=== PATIENT | female | born 1935 | race Caucasian/White ===

== ENCOUNTER 2018-10-06 11:29 | Outpatient (CLI) | payer MEDICARE, BC ==
--- NOTE | 2018-10-06 12:55 | RAD ---
RADIOGRAPH CHEST 2 VIEWS: DATE: 10/06/2018. TIME: 11:41 a.m. HISTORY: An 83-year-old female status post defibrillator exchange. COMPARISON: One view study of 04/24/2015. FINDINGS: There is no air space density, pulmonary edema, pleural effusion, pneumothorax, or cardiomegaly. The re is a levoscoliosis of the thoracolumbar junction with associated high-grade degenerative disk smith ges, and a compensatory dextroscoliosis of the mid thoracic spine. The triple-lead left subclavian A ICD remains with lead tips at the right atrial appendage, right ventricle, and coronary sinus. No in terval change is detected compared to the prior image. IMPRESSION: 1. No acute cardiopulmonary findings. 2. Automatic implantable cardioverter-defibrillator. 3. S-shaped scoliosis. jn [] POS: [facility]
== END 2018-10-06 11:30 | disposition home or self-care (01) ==
LOC: RAD 11:29
PROVIDERS: ATTEND Internal Medicine Pulmonary Disease
DX: R06.00 Dyspnea, unspecified (principal); M41.9 Scoliosis, unspecified; Z95.810 Presence of automatic (implantable) cardiac defibrillator
CPT/HCPCS: 71046

== ENCOUNTER 2019-05-12 15:15 | Inpatient (IN) | payer MEDICARE, BC ==
[~2019-05-12 15:15] MED LIST: ISOVUE-370 76%-LOCM 1 ML ONE
[2019-05-12 16:35] LABS: #Basophils 0.1 thou/uL (0.0-0.2); #Eosinphils 0.1 thou/uL (0.0-0.7); #Lymphocytes 1.1 thou/uL (1.20-3.40); #Monocytes 0.4 thou/uL (0.11-0.59); #Neutrophils 7.6 thou/uL (1.40-6.50); %Basophils 0.8 % (0.0-1.0); %Eosinophils 1.3 % (0.0-10.0); %Lymphocytes 11.7 % (21.0-51.0); %Monocytes 4.6 % (0.0-10.0); %Neutrophils 81.7 % (42.0-75.0); Hemoglobin 12.8 g/dL (12.0-16.0); Mean Corpuscular HGB CONC 33.5 g/dL (32.0-36.0); Mean Corpuscular Hemoglobin 33.8 pg (27.0-31.0); Mean Platelet Volume 8.7 fL (7.4-10.4); Platelet Count 199 thou/uL (130-400); RBC Distribution Width 15.4 % (11.5-14.5); Red Blood Cell (RBC) Count 3.79 mill/uL (4.20-5.40); White Blood Cell (WBC) Count 9.3 thou/uL (4.8-10.8)
[2019-05-12 16:36] LABS: Bilirubin Negative (Negative); Blood, Urine Negative (Negative); Clarity Clear (Clear); Glucose, Urine (Dipstick) Normal (Negative); Leukocyte Negative Leu/uL (Negative); Nitrite Negative (Negative); Protein, Urine (Dipstick) 10 mg/dL (Neg-Trace); Urobilinogen Normal mg/dL (Less than 2)
[2019-05-12 17:04] LABS: ALT (SGPT) 22 U/L (8-55); AST (SGOT) 24 U/L (5-34); Albumin 4.5 g/dL (3.4-4.8); Alkaline Phosphatase 86 U/L (40-150); Anion Gap 12 mmol/L (10-20); BUN (Urea Nitrogen) 14 mg/dL (9.8-20.1); Calc. Creatinine Clearance 0 mL/min (70-130); Carbon Dioxide 27 mmol/L (23-31); Chloride 104 mmol/L (98-107); Estimated GFR-MDRD 70; Globulin 2.6 g/dL (2.4-3.5); Glucose 96 mg/dL (83-110); Potassium 3.7 mmol/L (3.5-5.1); Protein, Total 7.1 g/dL (6.0-8.3); Sodium 139 mmol/L (136-145)
[2019-05-12] MEDS ORDERED: Ketorolac Tromethamine 30 MG/ML VIAL ONE (18:04)
[2019-05-12] MEDS ORDERED: Ondansetron PF 4 MG/2 ML Vial ONE (18:04)
--- NOTE | 2019-05-12 19:24 | CT ---
CT OF ABDOMEN AND PELVIS PERFORMED WITH CONTRAST ENHANCEMENT: 05/12/19 HISTORY: Left lower quadrant pain. Patient is being treated on antibiotics for diverticulitis. The lung bases are clear. The liver shows some subtle areas of hypodensity which could represent tiny cysts. The inferior porti on of the spleen has a bulbous appearance. There is a subtle area of altered echogenicity which I bel ieve is actually related to a mass within the spleen, incompletely characterized. Most likely an enti ty such as a hemangioma. It measures almost 7 cm. Other splenic lesions are not excluded. There is no signs of infarct or bleed associated with this. The pancreas and gallbladder regions appear unremark able. Right and left adrenal glands are normal in appearance. Nonobstructing bilateral renal calculi are se en. There are inflammatory changes of the descending colon associated with diverticular changes. No a bscess is seen. No free air. CT OF PELVIS PERFORMED WITH CONTRAST ENHANCEMENT: Moderate sigmoid diverticulosis is noted. Chronic deformity to the left hip is present. No free fluid noted. IMPRESSION: 1. Findings compatible with diverticulitis of the descending colon. Change involves the mid to m ore distal descending colon. No abscess formation. 7 cm splenic mass, incompletely characterized, sta tistically most likely hemangioma. 2. Bilateral nonobstructing renal calculi. POS: [facility]
[2019-05-12] MEDS ORDERED: Clindamycin/D5W 600 mg/50 ml Premix Bag ONE (20:41)
[2019-05-12] MEDS ORDERED: cefTRIAXone\\ROCEPHIN 1 GM VIAL ONE (20:41)
[2019-05-12] MEDS ORDERED: Ketorolac Tromethamine 30 MG/ML VIAL IVP PRN (21:38)
[2019-05-12] MEDS ORDERED: Clindamycin/D5W 600 MG in Premix Bag 1 BAG IVPB SCH (22:00)
[2019-05-12] MEDS: Sodium Chloride 0.9% 1,000 ML IV SCH (22:26)
[2019-05-12 22:43] VITALS: BMI 25.9
[2019-05-13] MEDS ORDERED: Clindamycin/D5W 600 MG in Premix Bag 1 BAG IVPB SCH (06:00)
[2019-05-13] MEDS: Sodium Chloride 0.9% 1,000 ML IV SCH ×2 (06:06→18:35)
[2019-05-13 06:41] LABS: #Eosinphils 0.1 thou/uL (0.0-0.7); #Monocytes 0.3 thou/uL (0.11-0.59); %Basophils 0.4 % (0.0-1.0); %Eosinophils 3.3 % (0.0-10.0); %Monocytes 7.8 % (0.0-10.0); %Neutrophils 59.5 % (42.0-75.0); Hemoglobin 10.4 g/dL (12.0-16.0); Mean Corpuscular HGB CONC 33.2 g/dL (32.0-36.0); Mean Corpuscular Hemoglobin 33.9 pg (27.0-31.0); Mean Platelet Volume 8.4 fL (7.4-10.4); Platelet Count 152 thou/uL (130-400); RBC Distribution Width 15.4 % (11.5-14.5); Red Blood Cell (RBC) Count 3.07 mill/uL (4.20-5.40); White Blood Cell (WBC) Count 3.3 thou/uL (4.8-10.8)
[2019-05-13] MEDS ORDERED: Prevnar 13-Val Conj/PF 0.5 ML SYRINGE IM ONE (09:00)
[2019-05-13] MEDS ORDERED: Ondansetron ODT 4 MG TAB PO PRN (10:18)
[2019-05-13] MEDS ORDERED: Ketorolac Tromethamine 15 MG/ML VIAL IVP PRN (10:18)
[2019-05-13] MEDS ORDERED: Ondansetron PF 4 MG/2 ML Vial SLOW IVP PRN (10:19)
--- NOTE | 2019-05-13 11:51 | HP ---
CHIEF COMPLAINT: Abdominal pain. HISTORY OF PRESENT ILLNESS: This is an 84-year-old female, patient of Dr. Demario Jacob, whom he had been treating for diverticulitis for the previous two weeks with oral Cipro and Flagyl. The patient had been experiencing mucousy diarrhea as well as left lower quadrant pain. She denies any nausea or vomiting. She denies any melena or hematochezia, but she noted the pain was getting worse, and on the day of visit to the ER, the pain had gotten significantly worse, radiating to her back. Upon arrival to the ER, CT scan was done confirming the diverticulitis, but did not find a phlegmon and no evidence of rupture. So the plan was to put her in the hospital, change her to IV antibiotics. PAST MEDICAL HISTORY: She had a breast cancer, taken out by lumpectomy. She also has a history of hypertension, atrial fibrillation, and hyperlipidemia. She has had a hip issue since on her left side. SURGICAL HISTORY: She has had a left hip scope. She has had hysterectomy with bilateral oophorectomy. She has had cataract surgery bilaterally. She has a pacemaker defibrillator placed. She has had right knee replaced and she had right breast lumpectomy. 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 She is . Has children. Has no toxic habits. ALLERGIES: TO TYLENOL, CODEINE, HYDROCODONE, MORPHINE, NALOXONE, PROPOXYPHENE, AND TRAMADOL, ALL OF THEM CAUSE SEVERE NAUSEA. MEDICATIONS: 1. She is on Eliquis 2.5 mg twice a day. 2. She is on amlodipine 10 mg daily. 3. She is on carvedilol 6.25 mg b.i.d. 4. She is on lisinopril 20 mg daily. 5. She is on atorvastatin 40 mg daily. 6. She is on sotalol 80 mg daily. 7. She is on Advair inhaler Diskus p.r.n. 8. She is on anastrozole 1 mg daily at bedtime. 9. She is on torsemide 10 mg p.r.n. FAMILY HISTORY: Essentially noncontributory. REVIEW OF SYSTEMS: The patient denies any fevers. No headaches. No chills. No troubles with vision. No trouble chewing or swallowing. She denies any chest pain. She says she always has some chronic shortness of breath. She denies any emesis or hematemesis. No cough. No hemoptysis. Denies any dysuria or hematuria. GI symptoms as stated in HPI. Denies any paresis or paresthesias. 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 She denies any, as stated, no paresthesias or paresis. Denies any auditory or visual hallucinations. No suicidal or homicidal ideations. PHYSICAL EXAMINATION: VITAL SIGNS: She has been afebrile. Temperature 97.9, pulse is 70s to 80s, respiratory rate is 14 to 16, O2 saturation 94% to 98% on room air. She has also had 1 to 2 L of O2 as needed. BP is well controlled, 109/67. GENERAL: She is lying in bed, relatively comfortable. Awake, alert, conversive, and pleasant. HEENT: Normocephalic, atraumatic cranium. Mucosa is moist. There is no injection to the sclera or the bulbar or palpebral conjunctiva of both eyes. She does wear glasses. Pupils are equal, round, and reactive to light and accommodation. Extraocular movements are intact. Oral mucosa is moist. NECK: Supple. No JVD. No bruits. No thyromegaly. No lymphadenopathy. LUNGS: Clear to auscultation bilaterally with no rales, rhonchi, or wheezes. HEART: S1 and S2. No rubs, murmurs, or gallops. Her pacemaker site is nontender and no erythema. No drainage. ABDOMEN: Soft on the right side. There is negative Rovsing. Tender to palpation on the left side, upper and lower. There is no rebound. There is only voluntary guarding. No involuntary guarding. EXTREMITIES: Palpable pulses times all four extremities. GENITOURINARY: Deferred. MUSCULOSKELETAL: Good muscle tone and strength is equal and symmetrical. NEUROLOGIC: She is awake, alert, and oriented x4. Cranial nerves 2 through 12 are equal and symmetrical. No neuromuscular or sensory deficits noted. LABORATORY DATA: Her white count initially when she came into the ER was 9.3, this morning it was 3.3, could be dilatory effect; hemoglobin is 10.4; platelets of 152; neutrophils at 59; lymphocytes at 29%. Chemistry; sodium 139, potassium 3.7, chloride 104, bicarb 27, BUN is 14, creatinine is 0.79, GFR 70, glucose at 96. Liver functions are normal. Lipase is 19. The CT scan done in the ER of the abdomen and pelvis shows diverticulitis of the descending colon consistent with her exam. They found a known chronic 7 cm splenic hemangioma. She has bilateral nonobstructing renal calculi. ASSESSMENT AND PLAN: Diverticulitis of the descending and sigmoid colon. Failure of outpatient treatment. Plan is to change from oral antibiotics to IV Rocephin and clindamycin. She did have pain relief with Toradol, so we will use a small dose of Toradol as needed for pain. We will continue IV fluids and advance diet as tolerated. Job ID: [id number]
[2019-05-13] MEDS: cefTRIAXone\\ROCEPHIN 1 GM in Sodium Chloride 0.9% 100 ML IVPB SCH (13:16)
[2019-05-13] MEDS: Clindamycin/D5W 600 MG in Premix Bag 1 BAG IVPB SCH ×2 (15:38→21:29)
[2019-05-13] MEDS ORDERED: Ketorolac Tromethamine 30 MG/ML VIAL IVP PRN (19:50)
[2019-05-13] MEDS: Lisinopril 20 MG TAB PO SCH (20:31)
[2019-05-13] MEDS: Carvedilol 6.25 MG TAB PO SCH (20:31)
[2019-05-13] MEDS: Atorvastatin Calcium 10 MG TAB PO SCH (20:31)
[2019-05-13] MEDS: Apixaban 2.5 MG TAB PO SCH (20:31)
[2019-05-14] MEDS: Sodium Chloride 0.9% 1,000 ML IV SCH ×2 (03:33→13:52)
[2019-05-14] MEDS: Clindamycin/D5W 600 MG in Premix Bag 1 BAG IVPB SCH ×3 (05:34→21:55)
[2019-05-14 06:52] LABS: #Eosinphils 0.1 thou/uL (0.0-0.7); #Lymphocytes 0.9 thou/uL (1.20-3.40); #Monocytes 0.1 thou/uL (0.11-0.59); #Neutrophils 1.6 thou/uL (1.40-6.50); %Basophils 0.8 % (0.0-1.0); %Eosinophils 4.3 % (0.0-10.0); %Monocytes 5.2 % (0.0-10.0); %Neutrophils 57.5 % (42.0-75.0); Hemoglobin 9.9 g/dL (12.0-16.0); Mean Platelet Volume 8.3 fL (7.4-10.4); Platelet Count 145 thou/uL (130-400); RBC Distribution Width 15.1 % (11.5-14.5); Red Blood Cell (RBC) Count 2.91 mill/uL (4.20-5.40); White Blood Cell (WBC) Count 2.7 thou/uL (4.8-10.8)
[2019-05-14 07:15] LABS: Anion Gap 10 mmol/L (10-20); BUN (Urea Nitrogen) 6 mg/dL (9.8-20.1); Calc. Creatinine Clearance 82 mL/min (70-130); Calcium 8.3 mg/dL (7.8-10.44); Carbon Dioxide 24 mmol/L (23-31); Chloride 110 mmol/L (98-107); Estimated GFR-MDRD Greater than 90; Glucose 85 mg/dL (83-110); Potassium 3.3 mmol/L (3.5-5.1); Sodium 141 mmol/L (136-145)
[2019-05-14] MEDS: Amlodipine 10 MG TAB PO SCH (09:34)
[2019-05-14] MEDS: Lisinopril 20 MG TAB PO SCH ×2 (09:35→19:52)
[2019-05-14] MEDS: Carvedilol 6.25 MG TAB PO SCH ×2 (09:35→19:50)
[2019-05-14] MEDS ORDERED: Clopidogrel Bisulfate 75 MG TAB ONE ×2 (09:43→17:59)
[2019-05-14] MEDS: Apixaban 2.5 MG TAB PO SCH ×2 (10:23→19:49)
[2019-05-14] MEDS: Sotalol HCl 80 MG TAB PO SCH (10:23)
[2019-05-14] MEDS: cefTRIAXone\\ROCEPHIN 1 GM in Sodium Chloride 0.9% 100 ML IVPB SCH (10:32)
--- NOTE | 2019-05-14 10:48 | PRG ---
DATE OF SERVICE: 05/14/2019 SUBJECTIVE: Today, the patient feels slightly better. Had a bowel movement last night. Says it was the typical mush type of bowel movement that she has had for the last several weeks. No blood, a little bit of mucus. She did eat some liquids last night, broth, and a little potato soup. This morning, she had a little abdominal discomfort that she blames on the broth or the soup. She has not had much in the way of oral liquids. OBJECTIVE: VITAL SIGNS: Have been stable. She is afebrile. LUNGS: Clear to auscultation bilaterally. HEART: S1 and S2. No rubs, murmurs, or gallops. ABDOMEN: Soft, no peritoneal signs. Negative Rovsing. glory hole tender on the left side, left lower being worse, but it is slightly better than yesterday. LABORATORY DATA: White blood cell count has decreased from 3.3 to 2.7. Her H and H are 10 and 30 with a platelet count of 145. Sodium 141, potassium 3.3, chloride 110, bicarb is 24, creatinine is 0.58, GFR is greater than 90. ASSESSMENT: Diverticulitis, failed outpatient treatment. We will continue with Rocephin and clindamycin. Dr. Demario Jacob will be back tomorrow. Hopefully, we will try a transition as long as she is tolerating p.o. We will transition to p.o. antibiotics and then eventually home. Job ID: [id number]
[2019-05-14] MEDS: Anastrozole 1 MG TAB PO SCH (19:49)
[2019-05-14] MEDS: Atorvastatin Calcium 10 MG TAB PO SCH (19:51)
[2019-05-15] MEDS: Sodium Chloride 0.9% 1,000 ML IV SCH ×3 (01:02→22:12)
[2019-05-15] MEDS: Clindamycin/D5W 600 MG in Premix Bag 1 BAG IVPB SCH ×3 (05:36→22:11)
[2019-05-15] MEDS: Carvedilol 6.25 MG TAB PO SCH ×2 (08:27→22:09)
[2019-05-15] MEDS: Lisinopril 20 MG TAB PO SCH ×2 (08:27→22:10)
[2019-05-15] MEDS: Sotalol HCl 80 MG TAB PO SCH (08:28)
[2019-05-15] MEDS: Apixaban 2.5 MG TAB PO SCH ×2 (08:28→22:09)
[2019-05-15] MEDS: Amlodipine 10 MG TAB PO SCH (08:28)
--- NOTE | 2019-05-15 08:48 | PRG ---
DATE OF SERVICE: 05/15/2019 SUBJECTIVE: The patient states she is feeling better. She is having more bowel movements. OBJECTIVE: VITAL SIGNS: Blood pressure 147/73, temperature 98.1. LUNGS: Clear. HEART: Reveals no murmur. ABDOMEN: Soft. Bowel sounds present and active. IMPRESSION: Diverticulitis. PLAN: Continue current therapy. Job ID: [id number]
[2019-05-15] MEDS: cefTRIAXone\\ROCEPHIN 1 GM in Sodium Chloride 0.9% 100 ML IVPB SCH (11:41)
[2019-05-15] MEDS: Atorvastatin Calcium 10 MG TAB PO SCH (22:09)
[2019-05-15] MEDS: Anastrozole 1 MG TAB PO SCH (22:10)
[2019-05-16] MEDS: Clindamycin/D5W 600 MG in Premix Bag 1 BAG IVPB SCH (05:54)
[2019-05-16] MEDS: Sodium Chloride 0.9% 1,000 ML IV SCH (05:54)
[2019-05-16 07:55] VITALS: BP 131/73; TEMP 97.9
[2019-05-16] MEDS: Sotalol HCl 80 MG TAB PO SCH (07:58)
[2019-05-16] MEDS: Amlodipine 10 MG TAB PO SCH (07:59)
[2019-05-16] MEDS: Lisinopril 20 MG TAB PO SCH (08:00)
[2019-05-16] MEDS: Carvedilol 6.25 MG TAB PO SCH (08:00)
[2019-05-16] MEDS: Apixaban 2.5 MG TAB PO SCH (08:57)
--- NOTE | 2019-05-16 09:24 | PRG ---
DATE OF SERVICE: 05/16/2019 SUBJECTIVE: Ms. Camacho is feeling much better. She has less abdominal pain. She is tolerating normal diet. OBJECTIVE: VITAL SIGNS: Blood pressure 166/71, temperature 97.7. ABDOMEN: Soft. Bowel sounds present and active. No rebound. No tenderness otherwise noted. IMPRESSION: Diverticulitis. PLAN: The patient can be discharged home today. Job ID: [id number]
--- NOTE | 2019-05-16 10:59 | DIS ---
DATE OF ADMISSION: 05/12/2019 DATE OF DISCHARGE: 05/16/2019 DISCHARGE DIAGNOSIS: Diverticulitis. HOSPITAL SUMMARY: The patient is an 84-year-old female, who presented to the emergency room complaining of recurrent left lower quadrant pain. She was found to have diverticulitis by CT scan. She had been previously on outpatient therapy. She was subsequently admitted to the hospital, begun on IV antibiotics. Her hospital course was with slow and steady improvement. By 05/16/2019, she was afebrile, tolerated all p.o. intake. Her abdominal pain was significantly reduced. DISCHARGE MEDICATIONS: She was discharged home on her home medications; 1. Amlodipine 10 mg daily. 2. Arimidex 1 mg daily. 3. Eliquis 2.5 mg b.i.d. 4. Atorvastatin 10 mg daily. 5. Carvedilol 6.25 mg daily. 6. Lisinopril 20 mg daily. 7. Sotalol 40 mg daily. 8. Levaquin 500 mg p.o. daily. 9. Flagyl 500 mg p.o. t.i.d. FOLLOWUP: She will be seen in followup in 1 week. Job ID: [id number]
== END 2019-05-16 10:17 | disposition home or self-care (01) | DRG 392 ==
LOC: ERS 15:15 → T4-B 19:45
PROVIDERS: ADMIT Family Medicine; ATTEND Family Medicine
DX: K57.32 Diverticulitis of large intestine without perforation or abscess without bleeding (principal); E78.5 Hyperlipidemia, unspecified; I10 Essential (primary) hypertension; I48.91 Unspecified atrial fibrillation; D18.09 Hemangioma of other sites; N20.0 Calculus of kidney; Z96.651 Presence of right artificial knee joint; Z79.01 Long term (current) use of anticoagulants; Z85.3 Personal history of malignant neoplasm of breast; Z90.710 Acquired absence of both cervix and uterus; Z98.42 Cataract extraction status, left eye; Z98.41 Cataract extraction status, right eye; Z95.0 Presence of cardiac pacemaker; Z88.6 Allergy status to analgesic agent; Z88.8 Allergy status to other drugs, medicaments and biological substances
CPT/HCPCS: 36415; 74177; 80048; 80053; 81003; 83690; 85025; 87045; 87046; 87449; 87899; 90471; 90670; 96361; 96365; 96368; 96375; G0009; J0696; J1885; J2405; J3490; Q0162; Q9966

== ENCOUNTER 2019-06-27 06:40 | Day surgery (SDC) | payer MEDICARE, BC ==
[2019-06-23 11:18] VITALS: BMI 26.1
--- NOTE | 2019-06-27 12:57 | OP ---
DATE OF PROCEDURE: 06/27/2019 PROCEDURE PERFORMED: Esophagogastroduodenoscopy with biopsy and colonoscopy with snare polypectomy and biopsy. PREOPERATIVE DIAGNOSIS: Left lower quadrant abdominal pain and chronic diarrhea and abnormal CT scan of the abdomen and gastroesophageal reflux disease and anemia, and family history of colon cancer in her brother at age 40. DESCRIPTION OF PROCEDURE: Informed consent was obtained from the patient. She was sedated with total intravenous anesthesia. The bite block was placed and the endoscope was advanced easily to the second portion of the duodenum and retroflexion was performed in the stomach. The esophagus was normal overall, but did have a mild grade A erosive esophagitis at the GE junction. This was biopsied to rule out Faustin's. The stomach was normal including retroflexed views. The pylorus and first and second portions of the duodenum, duodenal biopsies were taken to rule out celiac disease. The patient was turned around. Rectal exam was performed and was normal. The colonoscope was advanced with some difficulty through the sigmoid colon due to severe diverticulosis with peridiverticular stricture in the sigmoid colon. The colonoscope was advanced to the terminal ileum. The mucosa of the terminal ileum was normal. The ileocecal valve and appendiceal orifice were clearly identified. There was severe diverticulosis of the transverse descending and sigmoid colon with stricturing of the sigmoid colon and then peridiverticular segment. A 2 mm polyp was removed from the cecum by cold biopsy forceps. There were 6 polyps removed from the ascending colon. One measured 11 mm and was removed by hot snare. Two other polyps measured around 6 mm and removed by hot snare. Three polyps measured around 4 to 5 mm and were removed by cold snare polypectomy. There were 3 polyps in the transverse colon. These measured 4 to 7 mm. Two of these were removed by hot snare, and one was removed by cold snare. There were three flat polyps in the descending colon. One larger polyp measuring 11 mm was removed by a snare cautery polypectomy; however, the proximal edge of the polyp could not be snared as the snare just slit over the top of it. Raising with saline did not help the situation. Ultimately, the proximal edge of that polyp was cauterized with argon plasma coagulation with good effect in that area. A tattoo was placed next to this site. There were two other flat polyps removed from the descending colon measuring 6 mm and 9 mm. The 9 mm polyp was removed by saline injection lift and snare cautery polypectomy, and the 6 mm polyp was removed by snare cautery polypectomy. The remainder of the colonic mucosa was normal including retroflexed views in the rectum. IMPRESSION: 1. Mild grade A erosive esophagitis, biopsied to rule out Faustin esophagus. 2. Otherwise normal esophagogastroduodenoscopy. Duodenal biopsies taken to rule out celiac disease. 3. A 2 mm cecal polyp was removed with a cold biopsy forceps. 4. Six polyps were removed from the ascending colon measuring 4 mm to 11 mm. Three of these were removed by hot snare and three were removed by cold snare. 5. There were three transverse colon polyps removed, two by hot snare and one by cold snare. 6. Three flat descending polyps were removed. One of these measured 11 mm and the proximal edge could not be removed with the snare and was cauterized with argon plasma coagulation. This polyp was also tattooed. The other two polyps were removed by hot snare. 7. Severe diverticulosis of the sigmoid, descending, and transverse colon. There was stricturing of the sigmoid colon that made advancement of the colonoscope somewhat difficult through that area. RECOMMENDATIONS: 1. Await histopathology. 2. Repeat colonoscopy in 1 year. 3. Follow up in GI clinic. 4. Start [place] in 5 days. Job ID: [id number]
[2019-06-27] MEDS ORDERED: PROPOFOL 200 MG/20 ML VIAL ONE (17:58)
== END 2019-06-27 12:40 | disposition home or self-care (01) ==
LOC: SDC 06:40
PROVIDERS: ATTEND Internal Medicine Gastroenterology
PROC: 0DBK8ZX Excision of Ascending Colon, Via Natural or Artificial Opening Endoscopic, Diagnostic (ICD-10-PCS; principal; 2019-06-27)
PROC: 0DBM8ZX Excision of Descending Colon, Via Natural or Artificial Opening Endoscopic, Diagnostic (ICD-10-PCS; 2019-06-27)
PROC: 0DBK8ZZ Excision of Ascending Colon, Via Natural or Artificial Opening Endoscopic (ICD-10-PCS; 2019-06-27)
PROC: 0DBM8ZZ Excision of Descending Colon, Via Natural or Artificial Opening Endoscopic (ICD-10-PCS; 2019-06-27)
PROC: 0DB48ZX Excision of Esophagogastric Junction, Via Natural or Artificial Opening Endoscopic, Diagnostic (ICD-10-PCS; 2019-06-27)
DX: D12.3 Benign neoplasm of transverse colon (principal); D12.4 Benign neoplasm of descending colon; K21.0 Gastro-esophageal reflux disease with esophagitis; D64.9 Anemia, unspecified; I11.0 Hypertensive heart disease with heart failure; I50.9 Heart failure, unspecified; I25.10 Atherosclerotic heart disease of native coronary artery without angina pectoris; E78.00 Pure hypercholesterolemia, unspecified; M19.90 Unspecified osteoarthritis, unspecified site; Z80.0 Family history of malignant neoplasm of digestive organs; Z79.01 Long term (current) use of anticoagulants; Z79.899 Other long term (current) drug therapy; Z88.5 Allergy status to narcotic agent; Z88.8 Allergy status to other drugs, medicaments and biological substances; Z95.810 Presence of automatic (implantable) cardiac defibrillator
CPT/HCPCS: 88305; 88312; 88313; J2704

== ENCOUNTER 2019-07-11 10:22 | Outpatient (CLI) | payer MEDICARE, BC ==
--- NOTE | 2019-07-11 13:08 | CT ---
CT LUMBAR SPINE WITHOUT CONTRAST: INDICATIONS: Lumbar radiculopathy. Lumbar stenosis. COMPARISON: CT lumbar spine dated February 2013. TECHNIQUE: Axial tomograms obtained with multiplanar reconstruction. FINDINGS: The lumbar vertebrae maintain height. There is a grade 1 anterolisthesis at L4-L5, which is unchange d in appearance from 2013. T12-L1: At the T12-L1 level, no significant disk bulge centrally. No central canal stenosis. There is an osteophyte complex projecting laterally, to the right, which does encroach into the right fora mason and appears to displace the exiting right T12 nerve root. This osteophyte complex was also pres ent on the prior study. L1-L2: No significant disk bulge centrally. Mild facet hypertrophy. No central canal stenosis. Th ere is a large osteophyte complex projecting to the right, which encroaches into the foramen at this level as well. There is evidence of contact with the exiting right L1 nerve root. This osteophyte is similar in appearance to the prior exam. L2-L3: Broad-based disk bulge flattens the anterior thecal sac. Facet hypertrophy is prominent. Th luke changes result in moderate central canal stenosis. Asymmetric disk osteophyte complex projects l aterally to the right. Right foraminal encroachment. Similar findings were present at this level in 2013. L3-L4: Minimal posterior listhesis of approximately 1 to 2 mm. Diffuse disk bulge. Facet hypertrop hy is prominent. Mild to moderate central canal stenosis. Asymmetric disk projects laterally to the right. Mild left foraminal stenosis due to facet hypertrophy. Findings at this level are also similar to the prior study. L4-L5: Anterior listhesis, as described above. Prominent facet hypertrophy. Moderate central canal stenosis. Severe left foraminal stenosis secondary to asymmetric disk bulge and hypertrophic change . These findings are also similar to the prior exam. L5-S1: Mild diffuse disk bulge. Calcification long the posterior disk border has a similar appearan ce to the prior study. No significant central canal stenosis. No significant foraminal stenosis. IMPRESSION: Central canal and foraminal stenosis at multiple levels, as described above. The lumbar spine findin gs are similar to the prior study from 2013. POS: OFF
== END 2019-07-11 10:23 | disposition home or self-care (01) ==
LOC: CT 10:22
PROVIDERS: ATTEND Anesthesiology Pain Medicine
DX: M48.061 Spinal stenosis, lumbar region without neurogenic claudication (principal)
CPT/HCPCS: 72131

== ENCOUNTER 2019-10-20 10:13 | Outpatient (CLI) | payer MEDICARE, BC ==
--- NOTE | 2019-10-20 11:00 | BD ---
EXAM: DEXA bone density examination HISTORY: 84-year-old postmenopausal female for screening COMPARISON: None FINDINGS: L1--bone mineral density 0.912 g/sq cm; T score -0.7 L2--bone mineral density 1.052 g/sq cm; T score 0.2 L3--bone mineral density 1.152 g/sq cm; T score 0.6 L4--bone mineral density 0.980 g/sq cm; T score -0.7 Total L1-L4--bone mineral density 1.020 g/sq cm; T score -0.2 Right femoral neck--bone mineral density0.727; T score -1.1 Total proximal right femur--bone mineral density 0.853; T score -0.7 IMPRESSION: Osteopenia.
== END 2019-10-20 10:14 | disposition home or self-care (01) ==
LOC: BICMAMMO 10:13
PROVIDERS: ATTEND Family Medicine
DX: M81.0 Age-related osteoporosis without current pathological fracture (principal); M85.851 Other specified disorders of bone density and structure, right thigh
CPT/HCPCS: 77080

== ENCOUNTER 2020-07-11 08:49 | Outpatient (CLI) | payer MEDICARE, BC ==
--- NOTE | 2020-07-11 11:32 | CT ---
CT Abdomen Pelvis W Con HISTORY: Diarrhea. Abdominal pain radiating to the left upper quadrant COMPARISON: 05/12/2019 FINDINGS: The lung bases are unremarkable. A small left pleural effusion is present. Small low-density lesions in the liver are stable likely cysts. No calcified gallstones are seen. The somewhat heterogeneous subtle mass in the spleen is again seen and appears larger compared to the previous study measuring a pproximately 8 cm on the current exam (about 7 cm on the previous study). The pancreas and adrenal glands are normal. Nonobstructing bilateral renal calculi and 12 mm right re nal cyst are again seen. No free air, free fluid or lymphadenopathy is noted in the abdomen or pelvis. The patient is post appendectomy and hysterectomy. There are vascular calcifications without evidence of aneurysmal dilatation of the abdominal aorta. T here are degenerative changes and scoliosis of the spine. The small bowel loops are not abnormally dilated. There is colonic diverticulosis. No pericolonic inf lammatory changes are seen to suggest diverticulitis. No abnormally loculated fluid collection is noted to suggest abscess formation. IMPRESSION: 1. Colonic diverticulosis without diverticulitis. 2. Interval increase in size of the splenic mass since 05/12/2019. 3. Nonobstructing bilateral renal calculi
== END 2020-07-11 08:50 | disposition home or self-care (01) ==
LOC: BICCT 08:49
PROVIDERS: ATTEND Family Medicine
DX: R19.7 Diarrhea, unspecified (principal); K57.30 Diverticulosis of large intestine without perforation or abscess without bleeding; N20.0 Calculus of kidney; R16.1 Splenomegaly, not elsewhere classified
CPT/HCPCS: 74177

== ENCOUNTER 2020-09-29 14:38 | Emergency (ER) | payer MEDICARE, BC ==
--- NOTE | 2020-09-29 17:12 | RAD ---
Exam: Chest one view HISTORY:Dyspnea. COVID positive patient. Comparison: 04/24/2015, 09/24/2020 FINDINGS: Cardiac silhouette:Cardiomegaly. Stable left-sided defibrillator. Aorta: Atherosclerotic Pulmonary vessels: Normal Costophrenic angles: Left-sided pleural effusion LUNGS: Multi lobar interstitial and alveolar opacities, progressing since the previous exam. Pneumothorax: None Osseous abnormalities: None IMPRESSION: Worsening multi lobar COVID pneumonia.
== END 2020-09-29 17:32 | disposition home or self-care (01) ==
LOC: ERS 14:38
DX: U07.1 COVID-19 (principal); J12.89 Other viral pneumonia; I10 Essential (primary) hypertension; J45.909 Unspecified asthma, uncomplicated; Z79.01 Long term (current) use of anticoagulants; Z79.899 Other long term (current) drug therapy
CPT/HCPCS: 71045

== ENCOUNTER 2021-04-02 12:43 | Inpatient (IN) | payer MEDICARE, BC ==
[~2021-04-02 12:43] MED LIST changes: -ISOVUE-370 76%-LOCM 1 ML ONE; +Iopamidol-370 76% 500 ML 1 ML ONE
[2021-04-02 13:19] LABS: #Lymphocytes 1.1 thou/uL (1.20-3.40); #Monocytes 0.1 thou/uL (0.11-0.59); #Neutrophils 1.7 thou/uL (1.40-6.50); %Basophils 1.2 % (0.0-1.0); %Eosinophils 0.7 % (0.0-10.0); %Lymphocytes 36.7 % (21.0-51.0); %Monocytes 4.4 % (0.0-10.0); Hemoglobin 5.7 g/dL (12.0-16.0); Mean Corpuscular HGB CONC 35.1 g/dL (32.0-36.0); Mean Corpuscular Hemoglobin 39.6 pg (27.0-31.0); Mean Platelet Volume 9.3 fL (7.4-10.4); Platelet Count 155 thou/uL (130-400); RBC Distribution Width 20.4 % (11.5-14.5); Red Blood Cell (RBC) Count 1.45 mill/uL (4.20-5.40); White Blood Cell (WBC) Count 2.9 thou/uL (4.8-10.8)
[2021-04-02 13:33] LABS: Bilirubin Negative (Negative); Blood, Urine Negative (Negative); Clarity Clear (Clear); Glucose, Urine (Dipstick) Negative (Negative); Ketone, Urine Negative (Negative); Leukocyte Negative (Negative); Nitrite Negative (Negative); Protein, Urine (Dipstick) 30 mg/dL (Neg-Trace); Specific Gravity, Urine 1.015 (1.005-1.030); Urobilinogen 0.2 mg/dL (Less than 2)
[2021-04-02 13:41] LABS: RBC/HPF 0-3 HPF (0-3); Squamous Epithelial 0-3 HPF (0-3); WBC/HPF 0-3 HPF (0-3)
[2021-04-02 13:44] LABS: ALT (SGPT) 10 U/L (8-55); AST (SGOT) 9 U/L (5-34); Albumin 4.3 g/dL (3.4-4.8); Alkaline Phosphatase 84 U/L (40-110); Anion Gap 12 mmol/L (10-20); BUN (Urea Nitrogen) 15 mg/dL (9.8-20.1); Calc. Creatinine Clearance 0 mL/min (70-130); Calcium 9.1 mg/dL (7.8-10.44); Carbon Dioxide 25 mmol/L (23-31); Chloride 107 mmol/L (98-107); Globulin 2.5 g/dL (2.4-3.5); Glucose 117 mg/dL (83-110); Potassium 3.9 mmol/L (3.5-5.1); Protein, Total 6.8 g/dL (5.8-8.1); Sodium 140 mmol/L (136-145)
[2021-04-02] MEDS ORDERED: Senokot S 8.6-50 MG TAB PO PRN (15:53)
[2021-04-02] MEDS ORDERED: Ondansetron ODT 4 MG TAB PO PRN (15:53)
[2021-04-02 16:54] LABS: Iron 133 ug/dL (50-170); Iron Binding Capacity, Total 186 mcg/dL (265-497)
[2021-04-02 17:25] VITALS: BMI 25.3
[2021-04-03 00:04] LABS: SARS-CoV-2 PCR by NAA Not Detected (NotDetected)
[2021-04-03 06:32] LABS: #Lymphocytes 0.8 thou/uL (1.20-3.40); #Monocytes 0.2 thou/uL (0.11-0.59); %Basophils 0.3 % (0.0-1.0); %Lymphocytes 39.7 % (21.0-51.0); %Monocytes 7.6 % (0.0-10.0); %Neutrophils 51.5 % (42.0-75.0); Hemoglobin 6.2 g/dL (12.0-16.0); Mean Corpuscular HGB CONC 34.9 g/dL (32.0-36.0); Mean Corpuscular Hemoglobin 36.1 pg (27.0-31.0); Mean Platelet Volume 9.6 fL (7.4-10.4); Platelet Count 92 thou/uL (130-400); Red Blood Cell (RBC) Count 1.72 mill/uL (4.20-5.40)
[2021-04-03 06:38] LABS: Anion Gap 10 mmol/L (10-20); BUN (Urea Nitrogen) 13 mg/dL (9.8-20.1); Calc. Creatinine Clearance 76 mL/min (70-130); Calcium 8.4 mg/dL (7.8-10.44); Carbon Dioxide 26 mmol/L (23-31); Chloride 108 mmol/L (98-107); Glucose 92 mg/dL (83-110); Potassium 3.7 mmol/L (3.5-5.1); Sodium 140 mmol/L (136-145)
[2021-04-03] MEDS: Pantoprazole 40 MG VIAL IVP SCH (08:29)
[2021-04-03] MEDS: Ondansetron PF 4 MG/2 ML Vial IVP PRN ×2 (09:40→19:00)
[2021-04-03] MEDS ORDERED: Non-Formulary Item 1 EACH (Fluticasone/Salmeterol [Advair Diskus 250/50] 1 EACH Blst.W.De PO PRN (09:54)
[2021-04-03] MEDS ORDERED: Mometasone 200 MCG/Formoterol 5 MCG 120 PUFF INHALER INH PRN ×2 (10:11→18:16)
[2021-04-03] MEDS ORDERED: GoLYTELY 4,000 ml Bottle PO SCH (16:00)
[2021-04-03 17:15] LABS: Hemoglobin 8.2 g/dL (12.0-16.0)
[2021-04-03] MEDS ORDERED: Promethazine HCl 25 MG in Sodium Chloride 0.9% 50 ML IVPB PRN (21:15)
[2021-04-03] MEDS: Potassium Chloride 10 MEQ TAB PO SCH (21:33)
[2021-04-03] MEDS: Lisinopril 20 MG TAB PO SCH (21:33)
[2021-04-03] MEDS: Dicyclomine 10 MG CAP PO SCH (21:33)
[2021-04-03] MEDS: Anastrozole 1 MG TAB PO SCH (21:33)
[2021-04-03] MEDS: Atorvastatin Calcium 10 MG TAB PO SCH (21:33)
[2021-04-03] MEDS: Sotalol HCl 80 MG TAB PO SCH (21:34)
[2021-04-04] MEDS: Nebivolol HCl 5 MG TAB PO SCH (07:41)
[2021-04-04] MEDS ORDERED: Non-Formulary Item 1 EACH (Nebivolol Hcl [Bystolic] 10 MG Tab) PO SCH (09:00)
[2021-04-04] MEDS ORDERED: Amlodipine 10 MG TAB PO SCH (09:00)
[2021-04-04] MEDS ORDERED: PROPOFOL 200 MG/20 ML VIAL ONE (10:14)
[2021-04-04] MEDS: Dicyclomine 10 MG CAP PO SCH ×2 (11:41→20:51)
[2021-04-04] MEDS: Sotalol HCl 80 MG TAB PO SCH ×2 (11:41→20:49)
[2021-04-04] MEDS: Lisinopril 20 MG TAB PO SCH ×2 (11:43→20:51)
[2021-04-04] MEDS: Amlodipine 5 MG TAB PO SCH (11:43)
[2021-04-04] MEDS: Potassium Chloride 10 MEQ TAB PO SCH ×2 (11:43→20:50)
[2021-04-04] MEDS: Colestipol HCl 5 GM PK PO SCH (11:44)
[2021-04-04] MEDS: Pantoprazole 40 MG VIAL IVP SCH (11:56)
[2021-04-04] MEDS: Atorvastatin Calcium 10 MG TAB PO SCH (20:50)
[2021-04-04] MEDS: Anastrozole 1 MG TAB PO SCH (20:51)
[2021-04-05 07:56] LABS: Anion Gap 12 mmol/L (10-20); BUN (Urea Nitrogen) 13 mg/dL (9.8-20.1); Calc. Creatinine Clearance 75 mL/min (70-130); Calcium 8.3 mg/dL (7.8-10.44); Carbon Dioxide 23 mmol/L (23-31); Chloride 106 mmol/L (98-107); Glucose 103 mg/dL (83-110); Potassium 4.3 mmol/L (3.5-5.1); Sodium 137 mmol/L (136-145)
[2021-04-05 08:19] LABS: #Lymphocytes 0.5 thou/uL (1.20-3.40); #Monocytes 0.1 thou/uL (0.11-0.59); #Neutrophils 1.1 thou/uL (1.40-6.50); %Eosinophils 0.2 % (0.0-10.0); %Lymphocytes 29.7 % (21.0-51.0); %Monocytes 5.6 % (0.0-10.0); %Neutrophils 64.5 % (42.0-75.0); Anisocytosis SLIGHT = 6-15 cells (100X) (0-5/hpf); Hemoglobin 7.6 g/dL (12.0-16.0); MDiff Complete? YES; Mean Corpuscular HGB CONC 34.3 g/dL (32.0-36.0); Mean Corpuscular Hemoglobin 35.3 pg (27.0-31.0); Mean Platelet Volume 10.3 fL (7.4-10.4); Ovalocytes SLIGHT = 2-5 cells (100X) (0-1/hpf); Platelet Count 57 thou/uL (130-400); Platelet Morphology Comment Appears Decreased; Polychromasia SLIGHT = 2-3 cells (100X) (0-2/hpf); RBC Distribution Width 18.2 % (11.5-14.5); Red Blood Cell (RBC) Count 2.14 mill/uL (4.20-5.40); White Blood Cell (WBC) Count 1.7 thou/uL (4.8-10.8)
[2021-04-05] MEDS: Amlodipine 5 MG TAB PO SCH (08:40)
[2021-04-05] MEDS: Sotalol HCl 80 MG TAB PO SCH ×2 (08:40→20:05)
[2021-04-05] MEDS: Potassium Chloride 10 MEQ TAB PO SCH ×2 (08:40→20:03)
[2021-04-05] MEDS: Pantoprazole 40 MG VIAL IVP SCH (08:41)
[2021-04-05] MEDS: Dicyclomine 10 MG CAP PO SCH ×2 (08:41→20:03)
[2021-04-05] MEDS: Nebivolol HCl 5 MG TAB PO SCH (08:41)
[2021-04-05] MEDS: Colestipol HCl 5 GM PK PO SCH (08:41)
[2021-04-05] MEDS: Lisinopril 20 MG TAB PO SCH ×2 (08:41→20:04)
[2021-04-05] MEDS ORDERED: Furosemide 40 MG/4 ML VIAL SLOW IVP SCH (13:45)
[2021-04-05] MEDS: Atorvastatin Calcium 10 MG TAB PO SCH (20:03)
[2021-04-05] MEDS: Anastrozole 1 MG TAB PO SCH (20:03)
[2021-04-06] MEDS: Benzonatate 100 MG CAP PO PRN ×2 (06:29→19:53)
[2021-04-06 07:33] LABS: Hemoglobin 7.3 g/dL (12.0-16.0); Mean Corpuscular HGB CONC 34.6 g/dL (32.0-36.0); Mean Corpuscular Hemoglobin 35.3 pg (27.0-31.0); RBC Distribution Width 17.7 % (11.5-14.5); Red Blood Cell (RBC) Count 2.06 mill/uL (4.20-5.40)
[2021-04-06] MEDS: Lisinopril 20 MG TAB PO SCH ×2 (08:25→19:54)
[2021-04-06] MEDS: Amlodipine 5 MG TAB PO SCH (08:25)
[2021-04-06] MEDS: Dicyclomine 10 MG CAP PO SCH ×2 (08:26→19:54)
[2021-04-06] MEDS: Potassium Chloride 10 MEQ TAB PO SCH ×2 (08:26→19:55)
[2021-04-06] MEDS: Nebivolol HCl 5 MG TAB PO SCH (08:26)
[2021-04-06] MEDS: Colestipol HCl 5 GM PK PO SCH (08:30)
[2021-04-06] MEDS ORDERED: Furosemide 40 MG/4 ML VIAL SLOW IVP SCH (09:00)
[2021-04-06 09:57] LABS: Anisocytosis MODERATE=16-30 cells (100X) (0-5/hpf); Band 2 % (5-11); Eosinophils 4 % (0-10); Hypochromia SLIGHT = 6-15 cells (100X) (0-5/hpf); Lymphocytes 35 % (21-51); MDiff Complete? YES; Mean Platelet Volume 10.5 fL (7.4-10.4); Monocytes 6 % (0-10); Neutrophil 53 % (42-75); Ovalocytes SLIGHT = 2-5 cells (100X) (0-1/hpf); Platelet Count 54 thou/uL (130-400); Platelet Morphology Comment Appears Decreased; Vacuoles SLIGHT; White Blood Cell (WBC) Count 1.4 thou/uL (4.8-10.8)
[2021-04-06] MEDS: Sotalol HCl 80 MG TAB PO SCH ×2 (10:03→19:54)
[2021-04-06] MEDS: Furosemide 40 MG/4 ML VIAL SLOW IVP SCH (14:01)
[2021-04-06] MEDS: Anastrozole 1 MG TAB PO SCH (19:55)
[2021-04-06] MEDS: Atorvastatin Calcium 10 MG TAB PO SCH (19:55)
[2021-04-07] MEDS: Furosemide 40 MG/4 ML VIAL SLOW IVP SCH (06:00)
[2021-04-07 08:03] LABS: Anion Gap 15 mmol/L (10-20); BUN (Urea Nitrogen) 16 mg/dL (9.8-20.1); Calc. Creatinine Clearance 64 mL/min (70-130); Calcium 8.9 mg/dL (7.8-10.44); Carbon Dioxide 27 mmol/L (23-31); Chloride 102 mmol/L (98-107); Glucose 96 mg/dL (83-110); Potassium 4.2 mmol/L (3.5-5.1); Sodium 140 mmol/L (136-145)
[2021-04-07] MEDS: Potassium Chloride 10 MEQ TAB PO SCH (08:13)
[2021-04-07] MEDS: Amlodipine 5 MG TAB PO SCH (08:13)
[2021-04-07] MEDS: Sotalol HCl 80 MG TAB PO SCH (08:13)
[2021-04-07] MEDS: Lisinopril 20 MG TAB PO SCH (08:14)
[2021-04-07] MEDS: Colestipol HCl 5 GM PK PO SCH (08:14)
[2021-04-07] MEDS: Dicyclomine 10 MG CAP PO SCH (08:14)
[2021-04-07] MEDS: Nebivolol HCl 5 MG TAB PO SCH (08:14)
[2021-04-07 14:29] VITALS: BP 138/71; TEMP 98.3
== END 2021-04-07 14:34 | disposition home health service (06) | DRG 380 ==
LOC: ERS 12:43 → T4-A 15:04
PROVIDERS: ADMIT Internal Medicine; ATTEND Internal Medicine
PROC: 30233N1 Transfusion of Nonautologous Red Blood Cells into Peripheral Vein, Percutaneous Approach (ICD-10-PCS; 2021-04-02)
PROC: 0DB28ZX Excision of Middle Esophagus, Via Natural or Artificial Opening Endoscopic, Diagnostic (ICD-10-PCS; principal; 2021-04-04)
PROC: 0DB78ZX Excision of Stomach, Pylorus, Via Natural or Artificial Opening Endoscopic, Diagnostic (ICD-10-PCS; 2021-04-04)
PROC: 0DJD8ZZ Inspection of Lower Intestinal Tract, Via Natural or Artificial Opening Endoscopic (ICD-10-PCS; 2021-04-04)
PROC: 0DB68ZX Excision of Stomach, Via Natural or Artificial Opening Endoscopic, Diagnostic (ICD-10-PCS; 2021-04-04)
DX: K22.11 Ulcer of esophagus with bleeding (principal); I50.43 Acute on chronic combined systolic (congestive) and diastolic (congestive) heart failure; I48.20 Chronic atrial fibrillation, unspecified; Q43.8 Other specified congenital malformations of intestine; D62 Acute posthemorrhagic anemia; D61.818 Other pancytopenia; K57.31 Diverticulosis of large intestine without perforation or abscess with bleeding; Z20.822 Contact with and (suspected) exposure to COVID-19; E78.5 Hyperlipidemia, unspecified; K21.9 Gastro-esophageal reflux disease without esophagitis; Z96.651 Presence of right artificial knee joint; I11.0 Hypertensive heart disease with heart failure; D18.03 Hemangioma of intra-abdominal structures; K29.70 Gastritis, unspecified, without bleeding; K55.20 Angiodysplasia of colon without hemorrhage; Z79.899 Other long term (current) drug therapy; Z88.6 Allergy status to analgesic agent; Z28.21 Immunization not carried out because of patient refusal; Z90.710 Acquired absence of both cervix and uterus; Z98.42 Cataract extraction status, left eye; Z98.41 Cataract extraction status, right eye; Z95.810 Presence of automatic (implantable) cardiac defibrillator; Z88.5 Allergy status to narcotic agent; Z88.8 Allergy status to other drugs, medicaments and biological substances; Z79.01 Long term (current) use of anticoagulants; Z79.811 Long term (current) use of aromatase inhibitors; Z90.49 Acquired absence of other specified parts of digestive tract; Z86.16 Personal history of COVID-19; Z86.010 Personal history of colon polyps
CPT/HCPCS: 36415; 36430; 74177; 80048; 80053; 81001; 81015; 82274; 82607; 82728; 82746; 83540; 83550; 83880; 84484; 85007; 85025; 85027; 85060; 86850; 86900; 86901; 88305; 93005; 93306; 94640; C9113; J1940; J2405; J2550; J2704; J7620; P9016; Q9967; U0003; U0005

== ENCOUNTER 2021-04-15 09:26 | Day surgery (SDC) | payer MEDICARE, BC ==
[2021-04-15] MEDS ORDERED: Acetaminophen 500 MG TAB PO PRN (10:11)
[2021-04-15] MEDS ORDERED: diphenhydrAMINE 25 MG CAP PO PRN (10:11)
[2021-04-15 15:59] VITALS: BP 184/78; TEMP 98.2
== END 2021-04-15 16:00 | disposition home or self-care (01) ==
LOC: ONC/OP 09:26
PROVIDERS: ATTEND Internal Medicine Hematology & Oncology
PROC: 30233N1 Transfusion of Nonautologous Red Blood Cells into Peripheral Vein, Percutaneous Approach (ICD-10-PCS; principal; 2021-04-15)
DX: D64.9 Anemia, unspecified (principal); D69.6 Thrombocytopenia, unspecified; Z88.5 Allergy status to narcotic agent; Z88.6 Allergy status to analgesic agent
CPT/HCPCS: 36430; 86850; 86900; 86901; P9016; Q0163

== ENCOUNTER 2021-04-23 08:50 | Day surgery (SDC) | payer MEDICARE, BC ==
[2021-04-22 10:47] VITALS: BMI 26.5
[2021-04-23 09:10] LABS: INR-International Normal Ratio 1.1; PTT 34.3 sec (22.9-36.1); Prothrombin Time 14.6 sec (12.0-14.7)
[2021-04-23 10:09] VITALS: BP 162/77; TEMP 97.6
== END 2021-04-23 12:15 | disposition home or self-care (01) ==
LOC: CT 08:50
PROVIDERS: ATTEND Internal Medicine Hematology & Oncology
PROC: 07DR3ZX Extraction of Iliac Bone Marrow, Percutaneous Approach, Diagnostic (ICD-10-PCS; principal; 2021-04-23)
DX: D46.9 Myelodysplastic syndrome, unspecified (principal); J45.909 Unspecified asthma, uncomplicated; I11.0 Hypertensive heart disease with heart failure; I50.9 Heart failure, unspecified; E78.5 Hyperlipidemia, unspecified; Z85.3 Personal history of malignant neoplasm of breast; Z79.899 Other long term (current) drug therapy; Z88.5 Allergy status to narcotic agent; Z88.6 Allergy status to analgesic agent; Z88.8 Allergy status to other drugs, medicaments and biological substances
CPT/HCPCS: 20225; 77012; 85097; 85610; 85730; 88184; 88237; 88264; 88280; 88305; 88311; 88313; 88342

== ENCOUNTER 2021-04-25 10:19 | Day surgery (SDC) | payer MEDICARE, BC ==
[~2021-04-25 10:19] MED LIST changes: +Fentanyl 100 MCG/2 ML VIAL ONE; -Iopamidol-370 76% 500 ML 1 ML ONE; +Midazolam HCl 2 mg/2 ml Vial ONE; +Ondansetron PF 4 MG/2 ML Vial ONE; +Sodium Bicarbonate 2.5 MEQ/5 ML VIAL ONE
[2021-04-25] MEDS ORDERED: Acetaminophen 500 MG TAB PO SCH (11:00)
[2021-04-25] MEDS ORDERED: diphenhydrAMINE 25 MG CAP PO SCH (11:00)
[2021-04-25 16:11] VITALS: BP 140/64; TEMP 97.9
== END 2021-04-25 16:11 | disposition home or self-care (01) ==
LOC: ONC/OP 10:19
PROVIDERS: ATTEND Internal Medicine Hematology & Oncology
PROC: 30233N1 Transfusion of Nonautologous Red Blood Cells into Peripheral Vein, Percutaneous Approach (ICD-10-PCS; principal; 2021-04-25)
DX: D64.9 Anemia, unspecified (principal); D69.6 Thrombocytopenia, unspecified; Z88.5 Allergy status to narcotic agent; Z88.6 Allergy status to analgesic agent; Z88.8 Allergy status to other drugs, medicaments and biological substances
CPT/HCPCS: 36430; 86850; 86900; 86901; P9016; Q0163

== ENCOUNTER 2021-05-23 02:07 | Inpatient (IN) | payer MEDICARE, BC ==
[2021-05-23] MEDS ORDERED: Ondansetron ODT 4 MG TAB ONE (03:01)
[2021-05-23] MEDS ORDERED: Acetaminophen 500 MG TAB ONE (03:01)
[2021-05-23 03:39] LABS: ALT (SGPT) 56 U/L (8-55); AST (SGOT) 29 U/L (5-34); Albumin 3.9 g/dL (3.4-4.8); Alkaline Phosphatase 101 U/L (40-110); Anion Gap 10 mmol/L (10-20); BUN (Urea Nitrogen) 20 mg/dL (9.8-20.1); Bilirubin, Total 1.3 mg/dL (0.2-1.2); Calc. Creatinine Clearance 0 mL/min (70-130); Calcium 9.2 mg/dL (7.8-10.44); Carbon Dioxide 25 mmol/L (23-31); Chloride 105 mmol/L (98-107); Globulin 3.2 g/dL (2.4-3.5); Glucose 119 mg/dL (83-110); Potassium 4.1 mmol/L (3.5-5.1); Protein, Total 7.1 g/dL (5.8-8.1); Sodium 136 mmol/L (136-145)
[2021-05-23 03:40] LABS: Hemoglobin 7.2 g/dL (12.0-16.0); Mean Corpuscular HGB CONC 35.8 g/dL (32.0-36.0); Mean Corpuscular Hemoglobin 33.4 pg (27.0-31.0); Mean Corpuscular Volume 93.3 fL (78.0-98.0); Mean Platelet Volume 12.6 fL (7.4-10.4); Platelet Count 11 thou/uL (130-400); Platelet Morphology Comment Appears Decreased; RBC Distribution Width 14.3 % (11.5-14.5); Red Blood Cell (RBC) Count 2.16 mill/uL (4.20-5.40); White Blood Cell (WBC) Count 0.4 thou/uL (4.8-10.8)
[2021-05-23 04:05] LABS: SARS-CoV-2 NAA Rapid Test Not Detected (NotDetected)
[2021-05-23] MEDS ORDERED: cefTRIAXone\\ROCEPHIN 1 GM VIAL ONE (04:28)
[2021-05-23 04:59] LABS: Bacteria/HPF 4+ HPF (None Seen); Bilirubin Negative (Negative); Blood, Urine 3+ (Negative); Clarity Turbid (Clear); Glucose, Urine (Dipstick) Normal (Negative); Ketone, Urine Negative (Negative); Leukocyte Negative Leu/uL (Negative); Nitrite Negative (Negative); Protein, Urine (Dipstick) 20 mg/dL (Neg-Trace); Specific Gravity, Urine 1.018 (1.002-1.036); Squamous Epithelial 0-3 HPF (0-3); pH, Urine 6.5 (5.0-9.0)
[2021-05-23] MEDS ORDERED: Cefepime 1 GM VIAL ONE (05:17)
[2021-05-23] MEDS ORDERED: VANCOMYCIN 1.75 GM/350 ML BAG 1.75 GM in Premix Bag 1 BAG IVPB SCH (06:15)
[2021-05-23] MEDS: Sotalol HCl 80 MG TAB PO SCH ×2 (08:21→21:06)
[2021-05-23 09:14] VITALS: BMI 25.2
[2021-05-23] MEDS ORDERED: Non-Formulary Item 1 EACH (Fluticasone/Salmeterol [Advair Diskus 250/50] 1 EACH Blst.W.De PO PRN (10:06)
[2021-05-23] MEDS ORDERED: Polyethylene Glycol 3350 17 GM Packet PO PRN (10:06)
[2021-05-23] MEDS ORDERED: Non-Formulary Item 1 EACH (Albuterol Sulfate Hfa (Or) 200 PUFF Inh) INH PRN (10:06)
[2021-05-23] MEDS ORDERED: Torsemide 10 MG TAB PO PRN (10:06)
[2021-05-23] MEDS ORDERED: Non-Formulary Item 1 EACH (Prochlorperazine Maleate [Compazine] 10 MG Tab) PO PRN (10:06)
[2021-05-23] MEDS ORDERED: Albuterol 200 PUFF (6.7GM INHALER) INH PRN (10:33)
[2021-05-23] MEDS ORDERED: Mometasone 200 MCG/Formoterol 5 MCG 120 PUFF INHALER INH PRN (10:36)
[2021-05-23] MEDS ORDERED: Prochlorperazine Maleate 5 MG TAB PO PRN (10:37)
[2021-05-23] MEDS: Acetaminophen 325 MG TAB PO PRN ×2 (11:55→19:03)
[2021-05-23] MEDS: Ondansetron PF 4 MG/2 ML Vial IVP PRN (12:06)
[2021-05-23] MEDS: Cefepime 2 GM in Sodium Chloride 0.9% 100 ML IVPB SCH (21:04)
[2021-05-23] MEDS: Potassium Chloride 10 MEQ TAB PO SCH (21:05)
[2021-05-24] MEDS: Sotalol HCl 80 MG TAB PO SCH ×4 (00:45→20:06)
[2021-05-24] MEDS: Cefepime 2 GM in Sodium Chloride 0.9% 100 ML IVPB SCH ×2 (05:57→20:06)
[2021-05-24 06:34] LABS: Hemoglobin 5.2 g/dL (12.0-16.0); Mean Corpuscular HGB CONC 34.1 g/dL (32.0-36.0); Mean Corpuscular Hemoglobin 32.2 pg (27.0-31.0); Mean Corpuscular Volume 94.6 fL (78.0-98.0); Mean Platelet Volume 9.5 fL (7.4-10.4); Platelet Count 14 thou/uL (130-400); RBC Distribution Width 14.3 % (11.5-14.5); White Blood Cell (WBC) Count 0.3 thou/uL (4.8-10.8)
[2021-05-24 06:51] LABS: ALT (SGPT) 48 U/L (8-55); AST (SGOT) 28 U/L (5-34); Albumin 3.4 g/dL (3.4-4.8); Alkaline Phosphatase 80 U/L (40-110); Anion Gap 6 mmol/L (10-20); BUN (Urea Nitrogen) 16 mg/dL (9.8-20.1); Bilirubin, Direct 0.6 mg/dL (0.1-0.3); Bilirubin, Total 1.1 mg/dL (0.2-1.2); Calc. Creatinine Clearance 60 mL/min (70-130); Calcium 8.5 mg/dL (7.8-10.44); Carbon Dioxide 27 mmol/L (23-31); Chloride 108 mmol/L (98-107); Glucose 111 mg/dL (83-110); Potassium 3.7 mmol/L (3.5-5.1); Protein, Total 6.1 g/dL (5.8-8.1); Sodium 137 mmol/L (136-145)
[2021-05-24 07:03] LABS: Platelet Morphology Comment Appears Decreased
[2021-05-24] MEDS ORDERED: Non-Formulary Item 1 EACH (Nebivolol Hcl [Bystolic] 10 MG Tab) PO SCH (09:00)
[2021-05-24] MEDS ORDERED: Vancomycin HCl 1 GM in Sodium Chloride 0.9% 250 ML 300 ML IVPB SCH (09:00)
[2021-05-24] MEDS: Nebivolol HCl 5 MG TAB PO SCH (09:16)
[2021-05-24] MEDS: Vancomycin 1 GM in Premix Bag 1 BAG IVPB SCH (09:17)
[2021-05-24] MEDS: Acetaminophen 325 MG TAB PO PRN (09:50)
[2021-05-24] MEDS ORDERED: Sodium Chloride 0.9% (PF) 10 ML VIAL FS PRN ×2 (11:30→16:15)
[2021-05-24] MEDS: Potassium Chloride 10 MEQ TAB PO SCH (20:06)
[2021-05-24] MEDS ORDERED: Pantoprazole 40 MG VIAL IVP SCH (21:00)
[2021-05-25 00:08] LABS: Mean Corpuscular Hemoglobin 32.6 pg (27.0-31.0); Mean Corpuscular Volume 93.1 fL (78.0-98.0); Platelet Count 9 thou/uL (130-400); RBC Distribution Width 13.6 % (11.5-14.5); Red Blood Cell (RBC) Count 2.15 mill/uL (4.20-5.40); White Blood Cell (WBC) Count 0.4 thou/uL (4.8-10.8)
[2021-05-25] MEDS: Sotalol HCl 80 MG TAB PO SCH ×5 (02:52→21:55)
[2021-05-25] MEDS: Cefepime 2 GM in Sodium Chloride 0.9% 100 ML IVPB SCH (06:26)
[2021-05-25 07:04] LABS: Anion Gap 7 mmol/L (10-20); BUN (Urea Nitrogen) 17 mg/dL (9.8-20.1); Calc. Creatinine Clearance 72 mL/min (70-130); Calcium 8.6 mg/dL (7.8-10.44); Carbon Dioxide 25 mmol/L (23-31); Chloride 109 mmol/L (98-107); Glucose 104 mg/dL (83-110); Potassium 3.9 mmol/L (3.5-5.1); Sodium 137 mmol/L (136-145)
[2021-05-25 07:16] LABS: Hemoglobin 5.8 g/dL (12.0-16.0); Mean Corpuscular HGB CONC 34.9 g/dL (32.0-36.0); Mean Corpuscular Hemoglobin 32.5 pg (27.0-31.0); Mean Corpuscular Volume 93.3 fL (78.0-98.0); Mean Platelet Volume 9.9 fL (7.4-10.4); Platelet Count 22 thou/uL (130-400); RBC Distribution Width 13.5 % (11.5-14.5); White Blood Cell (WBC) Count 0.4 thou/uL (4.8-10.8)
[2021-05-25] MEDS: Nebivolol HCl 5 MG TAB PO SCH (08:18)
[2021-05-25] MEDS: Vancomycin 1 GM in Premix Bag 1 BAG IVPB SCH (08:19)
[2021-05-25] MEDS: Pantoprazole 40 MG VIAL IVP SCH (08:19)
[2021-05-25] MEDS ORDERED: Iopamidol-370 76% 500 ML 1 ML ONE (08:53)
[2021-05-25] MEDS ORDERED: Pantoprazole 40 MG VIAL IVP SCH (09:00)
[2021-05-25] MEDS: Ondansetron PF 4 MG/2 ML Vial IVP PRN (10:14)
[2021-05-25] MEDS ORDERED: MEROPENEM 1 GM/50 ML 1 GM in Premix Bag 1 BAG IVPB SCH (16:15)
[2021-05-25] MEDS: Dronabinol 2.5 MG CAP PO SCH (17:52)
[2021-05-25] MEDS: Potassium Chloride 10 MEQ TAB PO SCH (21:55)
[2021-05-25] MEDS ORDERED: Meropenem 1 GM in Sodium Chloride 0.9% 100 ML IVPB SCH (22:00)
[2021-05-26] MEDS: MEROPENEM 1 GM/50 ML 1 GM in Premix Bag 1 BAG IVPB SCH ×3 (01:33→16:37)
[2021-05-26 06:06] LABS: Hemoglobin 7.7 g/dL (12.0-16.0); Mean Corpuscular HGB CONC 34.8 g/dL (32.0-36.0); Mean Corpuscular Hemoglobin 31.7 pg (27.0-31.0); Mean Corpuscular Volume 91.1 fL (78.0-98.0); Platelet Count 15 thou/uL (130-400); RBC Distribution Width 14.6 % (11.5-14.5); Red Blood Cell (RBC) Count 2.42 mill/uL (4.20-5.40); White Blood Cell (WBC) Count 0.5 thou/uL (4.8-10.8)
[2021-05-26 06:15] LABS: Platelet Morphology Comment Appears Decreased
[2021-05-26 06:17] LABS: Anion Gap 8 mmol/L (10-20); BUN (Urea Nitrogen) 15 mg/dL (9.8-20.1); Calc. Creatinine Clearance 72 mL/min (70-130); Calcium 8.5 mg/dL (7.8-10.44); Carbon Dioxide 24 mmol/L (23-31); Chloride 108 mmol/L (98-107); Glucose 96 mg/dL (83-110); Potassium 3.9 mmol/L (3.5-5.1); Sodium 136 mmol/L (136-145)
[2021-05-26] MEDS: Dronabinol 2.5 MG CAP PO SCH ×2 (06:30→16:37)
[2021-05-26] MEDS: Sotalol HCl 80 MG TAB PO SCH ×4 (08:54→20:39)
[2021-05-26] MEDS: Nebivolol HCl 5 MG TAB PO SCH (08:54)
[2021-05-26] MEDS: Pantoprazole 40 MG VIAL IVP SCH (08:55)
[2021-05-26 09:01] LABS: Vancomycin, Trough 5.4 ug/mL
[2021-05-26] MEDS: Potassium Chloride 10 MEQ TAB PO SCH (20:38)
[2021-05-27] MEDS: MEROPENEM 1 GM/50 ML 1 GM in Premix Bag 1 BAG IVPB SCH ×3 (00:10→16:35)
[2021-05-27] MEDS: Sotalol HCl 80 MG TAB PO SCH ×4 (09:04→21:45)
[2021-05-27] MEDS: Dronabinol 2.5 MG CAP PO SCH ×2 (09:04→16:36)
[2021-05-27] MEDS: Pantoprazole 40 MG VIAL IVP SCH (09:05)
[2021-05-27] MEDS: Nebivolol HCl 5 MG TAB PO SCH (09:05)
[2021-05-27 11:09] LABS: Hemoglobin 7.7 g/dL (12.0-16.0); Mean Corpuscular HGB CONC 34.2 g/dL (32.0-36.0); Mean Corpuscular Hemoglobin 31.5 pg (27.0-31.0); Mean Corpuscular Volume 92.3 fL (78.0-98.0); Mean Platelet Volume 11.2 fL (7.4-10.4); Platelet Count 14 thou/uL (130-400); RBC Distribution Width 14.3 % (11.5-14.5); Red Blood Cell (RBC) Count 2.43 mill/uL (4.20-5.40); White Blood Cell (WBC) Count 0.3 thou/uL (4.8-10.8)
[2021-05-27 11:21] LABS: Anion Gap 9 mmol/L (10-20); BUN (Urea Nitrogen) 13 mg/dL (9.8-20.1); Calc. Creatinine Clearance 78 mL/min (70-130); Calcium 8.5 mg/dL (7.8-10.44); Carbon Dioxide 25 mmol/L (23-31); Chloride 104 mmol/L (98-107); Glucose 98 mg/dL (83-110); Magnesium 1.8 mg/dL (1.6-2.6); Sodium 134 mmol/L (136-145)
[2021-05-27 11:52] LABS: MDiff Complete? YES; Platelet Morphology Comment Appears Decreased; Polychromasia SLIGHT = 2-3 cells (100X) (0-2/hpf)
[2021-05-27] MEDS: Potassium Chloride 10 MEQ TAB PO SCH (20:14)
[2021-05-28] MEDS: MEROPENEM 1 GM/50 ML 1 GM in Premix Bag 1 BAG IVPB SCH ×3 (00:45→16:45)
[2021-05-28] MEDS: Sotalol HCl 80 MG TAB PO SCH ×4 (08:44→21:24)
[2021-05-28] MEDS: Nebivolol HCl 5 MG TAB PO SCH (09:35)
[2021-05-28] MEDS: Pantoprazole 40 MG VIAL IVP SCH (09:36)
[2021-05-28] MEDS: Dronabinol 2.5 MG CAP PO SCH ×2 (09:48→17:04)
[2021-05-28 11:13] LABS: Hemoglobin 7.3 g/dL (12.0-16.0); Mean Corpuscular HGB CONC 34.4 g/dL (32.0-36.0); Mean Corpuscular Hemoglobin 31.8 pg (27.0-31.0); Mean Corpuscular Volume 92.4 fL (78.0-98.0); Mean Platelet Volume 8.7 fL (7.4-10.4); Platelet Count 37 thou/uL (130-400); RBC Distribution Width 14.2 % (11.5-14.5); Red Blood Cell (RBC) Count 2.31 mill/uL (4.20-5.40); White Blood Cell (WBC) Count 0.5 thou/uL (4.8-10.8)
[2021-05-28] MEDS ORDERED: Activase 2 MG VIAL CATH SCH (16:15)
[2021-05-28] MEDS: Potassium Chloride 10 MEQ TAB PO SCH (21:18)
[2021-05-29] MEDS: MEROPENEM 1 GM/50 ML 1 GM in Premix Bag 1 BAG IVPB SCH ×3 (00:19→16:42)
[2021-05-29 09:02] LABS: Mean Corpuscular HGB CONC 33.1 g/dL (32.0-36.0); Mean Corpuscular Hemoglobin 30.5 pg (27.0-31.0); Mean Corpuscular Volume 92.2 fL (78.0-98.0); Mean Platelet Volume 7.9 fL (7.4-10.4); Platelet Count 55 thou/uL (130-400); RBC Distribution Width 14.1 % (11.5-14.5); Red Blood Cell (RBC) Count 3.28 mill/uL (4.20-5.40); White Blood Cell (WBC) Count 0.7 thou/uL (4.8-10.8)
[2021-05-29 09:08] LABS: Anion Gap 11 mmol/L (10-20); BUN (Urea Nitrogen) 11 mg/dL (9.8-20.1); Calc. Creatinine Clearance 70 mL/min (70-130); Carbon Dioxide 26 mmol/L (23-31); Chloride 101 mmol/L (98-107); Glucose 115 mg/dL (83-110); Magnesium 1.9 mg/dL (1.6-2.6); Sodium 134 mmol/L (136-145)
[2021-05-29] MEDS ORDERED: Nebivolol HCl 5 MG TAB PO SCH (09:30)
[2021-05-29 09:40] LABS: Lymphocytes 76 % (21-51); MDiff Complete? YES; Monocytes 8 % (0-10); Neutrophil 14 % (42-75); Platelet Morphology Comment Appears Decreased; RBC Morphology Normal
[2021-05-29] MEDS: Sotalol HCl 80 MG TAB PO SCH ×4 (10:00→21:33)
[2021-05-29] MEDS: Pantoprazole 40 MG VIAL IVP SCH (10:01)
[2021-05-29] MEDS: Nebivolol HCl 5 MG TAB PO SCH (10:02)
[2021-05-29] MEDS: Dronabinol 2.5 MG CAP PO SCH (11:05)
[2021-05-29] MEDS ORDERED: Potassium Phosphate 30 MMOL in Sodium Chloride 0.9% 250 ML 250 ML IVPB SCH (16:15)
[2021-05-29 16:51] LABS: Lactic Acid 0.7 mmol/L (0.5-2.2)
[2021-05-29 19:40] LABS: Free T4 (Free Thyroxine) 1.06 ng/dL (0.70-1.48); Thyroid Stimulating Hormone 0.9956 uIU/mL (0.35-4.94)
[2021-05-29] MEDS: Potassium Chloride 10 MEQ TAB PO SCH (20:35)
[2021-05-30] MEDS: MEROPENEM 1 GM/50 ML 1 GM in Premix Bag 1 BAG IVPB SCH ×3 (01:02→12:33)
[2021-05-30] MEDS: Pantoprazole 40 MG VIAL IVP SCH (08:49)
[2021-05-30] MEDS: Sotalol HCl 80 MG TAB PO SCH ×2 (08:50→09:12)
[2021-05-30] MEDS: Nebivolol HCl 5 MG TAB PO SCH (08:50)
[2021-05-30 08:57] LABS: Hemoglobin 8.2 g/dL (12.0-16.0); Mean Corpuscular HGB CONC 35.1 g/dL (32.0-36.0); Mean Corpuscular Hemoglobin 31.8 pg (27.0-31.0); Mean Corpuscular Volume 90.6 fL (78.0-98.0); Mean Platelet Volume 8.8 fL (7.4-10.4); Platelet Count 38 thou/uL (130-400); RBC Distribution Width 14.1 % (11.5-14.5); Red Blood Cell (RBC) Count 2.59 mill/uL (4.20-5.40); White Blood Cell (WBC) Count 0.8 thou/uL (4.8-10.8)
[2021-05-30 09:09] LABS: Anion Gap 9 mmol/L (10-20); BUN (Urea Nitrogen) 13 mg/dL (9.8-20.1); Calc. Creatinine Clearance 74 mL/min (70-130); Calcium 8.7 mg/dL (7.8-10.44); Carbon Dioxide 30 mmol/L (23-31); Chloride 100 mmol/L (98-107); Glucose 124 mg/dL (83-110); Magnesium 1.9 mg/dL (1.6-2.6); Phosphorus 2.3 mg/dL (2.3-4.7); Potassium 4.3 mmol/L (3.5-5.1); Sodium 135 mmol/L (136-145)
[2021-05-30 09:31] LABS: Lymphocytes 65 % (21-51); MDiff Complete? YES; Monocytes 12 % (0-10); Neutrophil 23 % (42-75); Platelet Morphology Comment Appears Decreased; RBC Morphology Normal
[2021-05-30 12:32] VITALS: TEMP 99.1
[2021-05-30 15:50] VITALS: BP 131/70
== END 2021-05-30 16:00 | DRG 808 ==
LOC: ERS 02:07 → ERHOLD 04:56 → SURG B 07:38
PROVIDERS: ADMIT Internal Medicine; ATTEND Internal Medicine
PROC: 30233R1 Transfusion of Nonautologous Platelets into Peripheral Vein, Percutaneous Approach (ICD-10-PCS; principal; 2021-05-23)
PROC: 30233N1 Transfusion of Nonautologous Red Blood Cells into Peripheral Vein, Percutaneous Approach (ICD-10-PCS; 2021-05-24)
DX: D61.818 Other pancytopenia (principal); Z20.822 Contact with and (suspected) exposure to COVID-19; G92 Toxic encephalopathy; K22.11 Ulcer of esophagus with bleeding; I50.32 Chronic diastolic (congestive) heart failure; N39.0 Urinary tract infection, site not specified; R78.81 Bacteremia; F05 Delirium due to known physiological condition; C95.90 Leukemia, unspecified not having achieved remission; D46.9 Myelodysplastic syndrome, unspecified; D62 Acute posthemorrhagic anemia; I48.91 Unspecified atrial fibrillation; E78.5 Hyperlipidemia, unspecified; I11.0 Hypertensive heart disease with heart failure; Z96.651 Presence of right artificial knee joint; K21.9 Gastro-esophageal reflux disease without esophagitis; B96.89 Other specified bacterial agents as the cause of diseases classified elsewhere; T40.7X5A Adverse effect of cannabis (derivatives), initial encounter; Z88.6 Allergy status to analgesic agent; Z88.8 Allergy status to other drugs, medicaments and biological substances; Z79.899 Other long term (current) drug therapy; Z95.810 Presence of automatic (implantable) cardiac defibrillator; Z82.3 Family history of stroke; Z82.49 Family history of ischemic heart disease and other diseases of the circulatory system; Z90.710 Acquired absence of both cervix and uterus; Z80.3 Family history of malignant neoplasm of breast; Z80.0 Family history of malignant neoplasm of digestive organs; Z85.3 Personal history of malignant neoplasm of breast; Z79.811 Long term (current) use of aromatase inhibitors
CPT/HCPCS: 0240U; 36415; 36430; 70450; 71045; 72125; 74177; 80048; 80053; 80076; 80202; 81003; 81015; 82140; 82274; 83605; 83735; 84100; 84146; 84439; 84443; 84481; 85025; 86850; 86900; 86901; 87040; 87077; 87086; 87149; 87186; 93880; 96365; 96367; C9113; J0692; J0696; J2185; J2405; J2997; J3370; J3490; J7050; P9016; P9035; Q0162; Q0167; Q9967

== ENCOUNTER 2021-06-12 | Day surgery (SDC) | payer MEDICARE, BC | END 2021-06-12 15:51 | disposition home or self-care (01) | PROC: 30233N1 Transfusion of Nonautologous Red Blood Cells into Peripheral Vein, Percutaneous Approach (ICD-10-PCS; principal; 2021-06-12) ==

== ENCOUNTER 2021-06-26 09:15 | Observation (INO) | payer MEDICARE, BC ==
[2021-06-26 10:34] LABS: Hemoglobin 4.5 g/dL (12.0-16.0); Mean Corpuscular HGB CONC 35.8 g/dL (32.0-36.0); Mean Corpuscular Hemoglobin 32.4 pg (27.0-31.0); Mean Corpuscular Volume 90.6 fL (78.0-98.0); Mean Platelet Volume 9.4 fL (7.4-10.4); Platelet Count 15 thou/uL (130-400); Red Blood Cell (RBC) Count 1.39 mill/uL (4.20-5.40); White Blood Cell (WBC) Count 0.6 thou/uL (4.8-10.8)
[2021-06-26 10:58] LABS: Albumin 3.2 g/dL (3.4-4.8)
[2021-06-26 10:59] LABS: Calcium 8.7 mg/dL (7.8-10.44); Chloride 105 mmol/L (98-107); Potassium 3.8 mmol/L (3.5-5.1); Sodium 137 mmol/L (136-145)
[2021-06-26 11:00] LABS: Glucose 122 mg/dL (83-110); Lymphocytes 65 % (21-51); MDiff Complete? YES; Monocytes 20 % (0-10); Neutrophil 15 % (42-75); Platelet Morphology Comment Appears Decreased; Polychromasia SLIGHT = 2-3 cells (100X) (0-2/hpf)
[2021-06-26 11:01] LABS: Protein, Total 6.2 g/dL (5.8-8.1)
[2021-06-26 11:02] LABS: Anion Gap 11 mmol/L (10-20); Bilirubin, Total 1.1 mg/dL (0.2-1.2); Carbon Dioxide 25 mmol/L (23-31)
[2021-06-26 11:03] LABS: Alkaline Phosphatase 77 U/L (40-110)
[2021-06-26 11:04] LABS: BUN (Urea Nitrogen) 21 mg/dL (9.8-20.1); Calc. Creatinine Clearance 0 mL/min (70-130)
[2021-06-26 11:05] LABS: AST (SGOT) 7 U/L (5-34)
[2021-06-26 11:06] LABS: ALT (SGPT) 9 U/L (8-55)
[2021-06-26] MEDS ORDERED: Acetaminophen 325 MG TAB PO PRN (13:36)
[2021-06-26] MEDS ORDERED: Ondansetron ODT 4 MG TAB PO PRN (13:36)
[2021-06-26] MEDS ORDERED: Vancomycin 1 GM in Premix Bag 1 BAG IVPB SCH (14:35)
[2021-06-26] MEDS ORDERED: Albuterol Sulfate 2.5 mg/3 ml Neb NEB PRN (14:41)
[2021-06-26 14:52] LABS: INR-International Normal Ratio 1.3; Prothrombin Time 15.8 sec (12.0-14.7)
[2021-06-26 14:53] LABS: PTT 39.4 sec (22.9-36.1)
[2021-06-26] MEDS ORDERED: Mometasone 200 MCG/Formoterol 5 MCG 120 PUFF INHALER INH PRN (15:54)
[2021-06-26] MEDS ORDERED: CEFEPIME HCL IN DEXTROSE 5 % 1 GM in Premix Bag 1 BAG IVPB SCH (16:00)
[2021-06-26 16:47] VITALS: BMI 24.7
[2021-06-26] MEDS ORDERED: methylPREDNISolone Sod Succ 40 MG VIAL IVP SCH (17:45)
[2021-06-26] MEDS ORDERED: diphenhydrAMINE 50 MG/ML VIAL IVP SCH (17:45)
[2021-06-26 18:34] LABS: Hemoglobin 8.2 g/dL (12.0-16.0); Platelet Count 22 thou/uL (130-400)
[2021-06-26] MEDS ORDERED: Furosemide 40 MG/4 ML VIAL SLOW IVP SCH ×2 (19:00)
[2021-06-26] MEDS ORDERED: Famotidine/PF 20 mg/2ml Vial SLOW IVP SCH (19:00)
[2021-06-26] MEDS: Sotalol HCl 80 MG TAB PO SCH (21:12)
[2021-06-26] MEDS: Lisinopril 20 MG TAB PO SCH (21:12)
[2021-06-26] MEDS: Potassium Chloride 10 MEQ TAB PO SCH (21:12)
[2021-06-26] MEDS: Cefepime 1 GM in Sodium Chloride 0.9% 100 ML IVPB SCH (21:14)
[2021-06-26] MEDS: Dicyclomine 10 MG/5 ML PO SCH (22:24)
[2021-06-26] MEDS: VANCOMYCIN 1.25 GM/250 ML BAG 1.25 GM in Premix Bag 1 BAG IVPB SCH (22:25)
[2021-06-27 04:44] LABS: Hemoglobin 7.1 g/dL (12.0-16.0); Mean Corpuscular HGB CONC 35.9 g/dL (32.0-36.0); Mean Corpuscular Hemoglobin 32.4 pg (27.0-31.0); Mean Corpuscular Volume 90.3 fL (78.0-98.0); Mean Platelet Volume 9.8 fL (7.4-10.4); Platelet Count 19 thou/uL (130-400); Red Blood Cell (RBC) Count 2.18 mill/uL (4.20-5.40); White Blood Cell (WBC) Count 0.4 thou/uL (4.8-10.8)
[2021-06-27 05:05] LABS: Anion Gap 12 mmol/L (10-20); BUN (Urea Nitrogen) 19 mg/dL (9.8-20.1); Calc. Creatinine Clearance 64 mL/min (70-130); Calcium 8.7 mg/dL (7.8-10.44); Carbon Dioxide 24 mmol/L (23-31); Chloride 106 mmol/L (98-107); Glucose 151 mg/dL (83-110); Potassium 3.4 mmol/L (3.5-5.1); Sodium 139 mmol/L (136-145)
[2021-06-27 05:10] LABS: Hypochromia SLIGHT = 6-15 cells (100X) (0-5/hpf); MDiff Complete? YES; Platelet Morphology Comment Appears Decreased
[2021-06-27] MEDS: Furosemide 20 MG/2 ML VIAL SLOW IVP SCH ×2 (06:08→14:07)
[2021-06-27] MEDS: Cefepime 1 GM in Sodium Chloride 0.9% 100 ML IVPB SCH ×2 (08:40→20:24)
[2021-06-27] MEDS: Dicyclomine 10 MG/5 ML PO SCH ×2 (08:40→20:27)
[2021-06-27] MEDS: Atorvastatin Calcium 10 MG TAB PO SCH (08:41)
[2021-06-27] MEDS: Nebivolol HCl 5 MG TAB PO SCH (08:41)
[2021-06-27] MEDS: Colestipol HCl 5 GM PK PO SCH (08:41)
[2021-06-27] MEDS: Sotalol HCl 80 MG TAB PO SCH ×2 (08:41→20:25)
[2021-06-27] MEDS: Amlodipine 10 MG TAB PO SCH (08:42)
[2021-06-27] MEDS: Lisinopril 20 MG TAB PO SCH ×2 (08:42→20:27)
[2021-06-27 19:38] LABS: SARS-CoV-2 PCR by NAA Not Detected (NotDetected)
[2021-06-27] MEDS: Potassium Chloride 10 MEQ TAB PO SCH (20:26)
[2021-06-27] MEDS: VANCOMYCIN 1.25 GM/250 ML BAG 1.25 GM in Premix Bag 1 BAG IVPB SCH (21:39)
[2021-06-28 03:18] VITALS: TEMP 97.9
[2021-06-28] MEDS: Furosemide 20 MG/2 ML VIAL SLOW IVP SCH (05:36)
[2021-06-28] MEDS: Cefepime 1 GM in Sodium Chloride 0.9% 100 ML IVPB SCH (08:52)
[2021-06-28] MEDS: Dicyclomine 10 MG/5 ML PO SCH (08:53)
[2021-06-28] MEDS: Sotalol HCl 80 MG TAB PO SCH (08:53)
[2021-06-28] MEDS: Atorvastatin Calcium 10 MG TAB PO SCH (08:53)
[2021-06-28] MEDS: Amlodipine 10 MG TAB PO SCH (08:53)
[2021-06-28] MEDS: Colestipol HCl 5 GM PK PO SCH (08:53)
[2021-06-28] MEDS: Nebivolol HCl 5 MG TAB PO SCH (08:53)
[2021-06-28] MEDS: Lisinopril 20 MG TAB PO SCH (08:54)
[2021-06-28 09:04] VITALS: BP 133/63
[2021-06-28 10:17] LABS: Eosinophils 4 % (0-10); Hemoglobin 7.6 g/dL (12.0-16.0); Lymphocytes 62 % (21-51); MDiff Complete? YES; Mean Corpuscular HGB CONC 35.7 g/dL (32.0-36.0); Mean Corpuscular Hemoglobin 32.2 pg (27.0-31.0); Mean Corpuscular Volume 90.2 fL (78.0-98.0); Mean Platelet Volume 9.7 fL (7.4-10.4); Monocytes 18 % (0-10); Neutrophil 16 % (42-75); Platelet Count 21 thou/uL (130-400); Platelet Morphology Comment Appears Decreased; Polychromasia SLIGHT = 2-3 cells (100X) (0-2/hpf); RBC Distribution Width 12.9 % (11.5-14.5); Red Blood Cell (RBC) Count 2.37 mill/uL (4.20-5.40); White Blood Cell (WBC) Count 0.8 thou/uL (4.8-10.8)
== END 2021-06-28 11:13 | disposition home health service (06) ==
LOC: ERS 09:15 → ERHOLD 11:15 → 2NO 16:09
PROVIDERS: ADMIT Family Medicine; ATTEND Family Medicine
DX: D61.810 Antineoplastic chemotherapy induced pancytopenia (principal); T45.1X5A Adverse effect of antineoplastic and immunosuppressive drugs, initial encounter; D46.9 Myelodysplastic syndrome, unspecified; D70.9 Neutropenia, unspecified; R50.81 Fever presenting with conditions classified elsewhere; C50.912 Malignant neoplasm of unspecified site of left female breast; C44.90 Unspecified malignant neoplasm of skin, unspecified; I48.20 Chronic atrial fibrillation, unspecified; E87.70 Fluid overload, unspecified; I11.0 Hypertensive heart disease with heart failure; I50.30 Unspecified diastolic (congestive) heart failure; E78.5 Hyperlipidemia, unspecified; K21.9 Gastro-esophageal reflux disease without esophagitis; K59.00 Constipation, unspecified; I25.10 Atherosclerotic heart disease of native coronary artery without angina pectoris; I44.7 Left bundle-branch block, unspecified; J45.20 Mild intermittent asthma, uncomplicated; Z20.822 Contact with and (suspected) exposure to COVID-19; Z86.16 Personal history of COVID-19; Z88.5 Allergy status to narcotic agent; Z88.6 Allergy status to analgesic agent; Z95.810 Presence of automatic (implantable) cardiac defibrillator; Z79.899 Other long term (current) drug therapy
CPT/HCPCS: 36430; 71045; 80048; 80053; 85014; 85018; 85025 ×3; 85049; 85610; 85730; 86850; 86900; 86901; 86920; 97116; 97139; 99284; P9016; P9035; U0003; U0005; 36415; 96374; 96375; 96376; G0378; J0692; J1200; J1642; J1940; J2920; J3370; J3490; S0028

== ENCOUNTER 2021-07-09 11:46 | Day surgery (SDC) | payer MEDICARE, BC ==
[2021-07-09] MEDS ORDERED: Sodium Chloride 0.9% 20 ML ONE (12:11)
[2021-07-09] MEDS ORDERED: Acetaminophen 500 MG TAB PO SCH (12:15)
[2021-07-09] MEDS ORDERED: diphenhydrAMINE 25 MG CAP PO SCH (12:15)
[2021-07-09 14:53] VITALS: TEMP 98.1
[2021-07-09 17:07] VITALS: BP 110/56
== END 2021-07-09 17:24 | disposition home or self-care (01) ==
LOC: ONC/OP 11:46
PROVIDERS: ATTEND Internal Medicine Hematology & Oncology
PROC: 30233N1 Transfusion of Nonautologous Red Blood Cells into Peripheral Vein, Percutaneous Approach (ICD-10-PCS; principal; 2021-07-09)
DX: D64.9 Anemia, unspecified (principal); D69.6 Thrombocytopenia, unspecified; Z88.5 Allergy status to narcotic agent; Z88.6 Allergy status to analgesic agent; Z88.8 Allergy status to other drugs, medicaments and biological substances; C94.6 Myelodysplastic disease, not elsewhere classified; C50.411 Malignant neoplasm of upper-outer quadrant of right female breast
CPT/HCPCS: 36430; 80053; 82248; 83615; 84100; 84550; 86850; 86900; 86901; J1642; P9016; Q0163

== ENCOUNTER 2021-07-11 15:06 | Day surgery (SDC) | payer MEDICARE, BC | END 2021-07-11 17:20 | disposition home or self-care (01) | LOC: ONC/OP 15:06 | PROVIDERS: ATTEND Internal Medicine Hematology & Oncology | PROC: 30233N1 Transfusion of Nonautologous Red Blood Cells into Peripheral Vein, Percutaneous Approach (ICD-10-PCS; principal; 2021-07-11) | PROC: 30233R1 Transfusion of Nonautologous Platelets into Peripheral Vein, Percutaneous Approach (ICD-10-PCS; 2021-07-11) | DX: D64.9 Anemia, unspecified (principal); D69.6 Thrombocytopenia, unspecified; Z88.5 Allergy status to narcotic agent; Z88.6 Allergy status to analgesic agent; Z88.8 Allergy status to other drugs, medicaments and biological substances ==

== ENCOUNTER 2021-07-16 08:51 | Day surgery (SDC) | payer MEDICARE, BC ==
[2021-07-16] MEDS ORDERED: Acetaminophen 500 MG TAB PO PRN (09:30)
[2021-07-16] MEDS ORDERED: diphenhydrAMINE 25 MG CAP PO PRN (09:31)
[2021-07-16 14:11] VITALS: BP 155/68; TEMP 98.1
== END 2021-07-16 14:17 | disposition home or self-care (01) ==
LOC: ONC/OP 08:51
PROVIDERS: ATTEND Internal Medicine Hematology & Oncology
PROC: 30233N1 Transfusion of Nonautologous Red Blood Cells into Peripheral Vein, Percutaneous Approach (ICD-10-PCS; principal; 2021-07-16)
DX: D64.9 Anemia, unspecified (principal); D69.6 Thrombocytopenia, unspecified; Z88.5 Allergy status to narcotic agent; Z88.6 Allergy status to analgesic agent
CPT/HCPCS: 36430; 86850; 86900; 86901; J1642; P9016; Q0163

== ENCOUNTER 2021-07-18 12:27 | Outpatient (CLI) | payer MEDICARE, BC | END 2021-07-18 12:28 | disposition home or self-care (01) | LOC: BICRAD 12:27 | PROVIDERS: ATTEND Internal Medicine Hematology & Oncology | DX: R06.02 Shortness of breath (principal); D46.Z Other myelodysplastic syndromes; C50.411 Malignant neoplasm of upper-outer quadrant of right female breast; R91.8 Other nonspecific abnormal finding of lung field | CPT/HCPCS: 71046 ==

== ENCOUNTER 2021-07-23 08:30 | Day surgery (SDC) | payer MEDICARE, BC ==
[~2021-07-23 08:30] MED LIST changes: +Acetaminophen 500 MG TAB PO PRN; -Fentanyl 100 MCG/2 ML VIAL ONE; -Midazolam HCl 2 mg/2 ml Vial ONE; -Ondansetron PF 4 MG/2 ML Vial ONE; -Sodium Bicarbonate 2.5 MEQ/5 ML VIAL ONE; +diphenhydrAMINE 25 MG CAP PO PRN
[2021-07-23] MEDS ORDERED: Sodium Chloride 0.9% 20 ML ONE (08:41)
[2021-07-23] MEDS ORDERED: Acetaminophen 500 MG TAB PO PRN (09:31)
[2021-07-23 15:17] VITALS: BP 143/65; TEMP 97.6
== END 2021-07-23 15:16 | disposition home or self-care (01) ==
LOC: ONC/OP 08:30
PROVIDERS: ATTEND Internal Medicine Hematology & Oncology
PROC: 30233N1 Transfusion of Nonautologous Red Blood Cells into Peripheral Vein, Percutaneous Approach (ICD-10-PCS; principal; 2021-07-23)
PROC: 30233R1 Transfusion of Nonautologous Platelets into Peripheral Vein, Percutaneous Approach (ICD-10-PCS; 2021-07-23)
DX: D64.9 Anemia, unspecified (principal); D69.6 Thrombocytopenia, unspecified; Z88.5 Allergy status to narcotic agent; Z88.6 Allergy status to analgesic agent; Z88.8 Allergy status to other drugs, medicaments and biological substances
CPT/HCPCS: 36430; 86850; 86900; 86901; J1642; P9016; P9035; Q0163

== ENCOUNTER 2021-08-04 12:02 | Day surgery (SDC) | payer MEDICARE, BC ==
[2021-08-04] MEDS ORDERED: Sodium Chloride 0.9% 20 ML ONE (12:14)
[2021-08-04] MEDS ORDERED: diphenhydrAMINE 25 MG CAP PO SCH (12:30)
[2021-08-04] MEDS ORDERED: Acetaminophen 500 MG TAB PO SCH (12:30)
[2021-08-04 16:30] VITALS: BP 116/58; TEMP 98.1
== END 2021-08-04 16:31 | disposition home or self-care (01) ==
LOC: ONC/OP 12:02
PROVIDERS: ATTEND Internal Medicine Hematology & Oncology
PROC: 30233N1 Transfusion of Nonautologous Red Blood Cells into Peripheral Vein, Percutaneous Approach (ICD-10-PCS; principal; 2021-08-04)
DX: D64.9 Anemia, unspecified (principal); D69.6 Thrombocytopenia, unspecified; Z88.5 Allergy status to narcotic agent; Z88.6 Allergy status to analgesic agent; Z88.8 Allergy status to other drugs, medicaments and biological substances
CPT/HCPCS: 36430; 86850; 86900; 86901; J1642; P9016; Q0163

== ENCOUNTER 2021-08-07 11:48 | Day surgery (SDC) | payer MEDICARE, BC ==
[2021-08-07] MEDS ORDERED: Sodium Chloride 0.9% 20 ML ONE (12:25)
[2021-08-07] MEDS ORDERED: diphenhydrAMINE 25 MG CAP PO SCH (12:30)
[2021-08-07] MEDS ORDERED: Acetaminophen 500 MG TAB PO SCH (12:30)
[2021-08-07 13:37] VITALS: TEMP 97.9
[2021-08-07 15:07] VITALS: BP 117/56
== END 2021-08-07 15:07 | disposition home or self-care (01) ==
LOC: ONC/OP 11:48
PROVIDERS: ATTEND Internal Medicine Hematology & Oncology
PROC: 30233N1 Transfusion of Nonautologous Red Blood Cells into Peripheral Vein, Percutaneous Approach (ICD-10-PCS; principal; 2021-08-07)
DX: D64.9 Anemia, unspecified (principal); D69.6 Thrombocytopenia, unspecified; Z88.5 Allergy status to narcotic agent; Z88.6 Allergy status to analgesic agent; Z88.8 Allergy status to other drugs, medicaments and biological substances
CPT/HCPCS: 36430; 86850; 86900; 86901; J1642; P9016

== ENCOUNTER 2021-08-12 11:25 | Day surgery (SDC) | payer MEDICARE, BC ==
[2021-08-12] MEDS ORDERED: Sodium Chloride 0.9% 20 ML ONE (12:05)
[2021-08-12] MEDS ORDERED: Acetaminophen 500 MG TAB PO SCH (12:15)
[2021-08-12] MEDS ORDERED: diphenhydrAMINE 25 MG CAP PO SCH (12:15)
[2021-08-12 12:32] VITALS: TEMP 97.5
[2021-08-12 13:12] VITALS: BP 130/63
== END 2021-08-12 13:13 | disposition home or self-care (01) ==
LOC: ONC/OP 11:25
PROVIDERS: ATTEND Internal Medicine Hematology & Oncology
PROC: 30233R1 Transfusion of Nonautologous Platelets into Peripheral Vein, Percutaneous Approach (ICD-10-PCS; principal; 2021-08-12)
DX: D69.6 Thrombocytopenia, unspecified (principal); D64.9 Anemia, unspecified; Z88.5 Allergy status to narcotic agent; Z88.6 Allergy status to analgesic agent
CPT/HCPCS: 36430; 86850; 86900; 86901; J1642; P9035

== ENCOUNTER 2021-08-19 11:24 | Day surgery (SDC) | payer MEDICARE, BC ==
[2021-08-19] MEDS ORDERED: Sodium Chloride 0.9% 20 ML ONE (11:51)
[2021-08-19] MEDS ORDERED: Acetaminophen 500 MG TAB PO SCH (12:30)
[2021-08-19] MEDS ORDERED: diphenhydrAMINE 25 MG CAP PO SCH (12:30)
[2021-08-19 16:23] VITALS: BP 120/60; TEMP 97.9
== END 2021-08-19 17:00 | disposition home or self-care (01) ==
LOC: ONC/OP 11:24
PROVIDERS: ATTEND Internal Medicine Hematology & Oncology
PROC: 30233R1 Transfusion of Nonautologous Platelets into Peripheral Vein, Percutaneous Approach (ICD-10-PCS; principal; 2021-08-19)
PROC: 30233N1 Transfusion of Nonautologous Red Blood Cells into Peripheral Vein, Percutaneous Approach (ICD-10-PCS; 2021-08-19)
DX: D64.9 Anemia, unspecified (principal); D69.6 Thrombocytopenia, unspecified; Z88.5 Allergy status to narcotic agent; Z88.8 Allergy status to other drugs, medicaments and biological substances
CPT/HCPCS: 36430; 86850; 86900; 86901; J1642; P9016; P9035

== ENCOUNTER 2021-08-26 11:26 | Day surgery (SDC) | payer MEDICARE, BC ==
[2021-08-26] MEDS ORDERED: Sodium Chloride 0.9% 20 ML ONE (11:54)
[2021-08-26] MEDS ORDERED: Acetaminophen 500 MG TAB PO SCH (12:15)
[2021-08-26] MEDS ORDERED: diphenhydrAMINE 25 MG CAP PO SCH (12:15)
[2021-08-26 17:08] VITALS: BP 112/56; TEMP 97.9
== END 2021-08-26 17:08 | disposition home or self-care (01) ==
LOC: ONC/OP 11:26
PROVIDERS: ATTEND Internal Medicine Hematology & Oncology
PROC: 30233N1 Transfusion of Nonautologous Red Blood Cells into Peripheral Vein, Percutaneous Approach (ICD-10-PCS; principal; 2021-08-26)
DX: D64.9 Anemia, unspecified (principal); D69.6 Thrombocytopenia, unspecified; Z88.5 Allergy status to narcotic agent; Z88.6 Allergy status to analgesic agent; Z88.8 Allergy status to other drugs, medicaments and biological substances
CPT/HCPCS: 36430; 86850; 86900; 86901; J1642; P9016

== ENCOUNTER 2021-09-03 09:27 | Day surgery (SDC) | payer MEDICARE, BC ==
[~2021-09-03 09:27] MED LIST changes: -Acetaminophen 500 MG TAB PO PRN; +Acetaminophen 500 MG TAB PO SCH; -diphenhydrAMINE 25 MG CAP PO PRN; +diphenhydrAMINE 25 MG CAP PO SCH
[2021-09-03] MEDS ORDERED: Sodium Chloride 0.9% 20 ML ONE (09:54)
[2021-09-03 14:04] VITALS: TEMP 97.5
[2021-09-03 15:40] VITALS: BP 102/55
== END 2021-09-03 15:40 | disposition home or self-care (01) ==
LOC: ONC/OP 09:27
PROVIDERS: ATTEND Internal Medicine Hematology & Oncology
PROC: 30233N1 Transfusion of Nonautologous Red Blood Cells into Peripheral Vein, Percutaneous Approach (ICD-10-PCS; principal; 2021-09-03)
DX: D64.9 Anemia, unspecified (principal); D69.6 Thrombocytopenia, unspecified; Z88.5 Allergy status to narcotic agent; Z88.6 Allergy status to analgesic agent; Z88.8 Allergy status to other drugs, medicaments and biological substances
CPT/HCPCS: 36430; 86850; 86900; 86901; J1642; P9016

== ENCOUNTER 2021-09-09 11:24 | Day surgery (SDC) | payer MEDICARE, BC ==
[2021-09-09] MEDS ORDERED: Acetaminophen 500 MG TAB PO SCH (13:00)
[2021-09-09] MEDS ORDERED: diphenhydrAMINE 25 MG CAP PO SCH (13:00)
[2021-09-09 13:09] VITALS: BP 129/61; TEMP 98
[2021-09-09] MEDS ORDERED: Sodium Chloride 0.9% 20 ML ONE (13:10)
== END 2021-09-09 13:45 | disposition home or self-care (01) ==
LOC: ONC/OP 11:24
PROVIDERS: ATTEND Internal Medicine Hematology & Oncology
PROC: 30233R1 Transfusion of Nonautologous Platelets into Peripheral Vein, Percutaneous Approach (ICD-10-PCS; principal; 2021-09-09)
DX: D69.6 Thrombocytopenia, unspecified (principal); D64.9 Anemia, unspecified; Z88.5 Allergy status to narcotic agent; Z88.6 Allergy status to analgesic agent
CPT/HCPCS: 36430; 86850; 86900; 86901; J1642; P9035

== ENCOUNTER 2021-09-16 10:53 | Day surgery (SDC) | payer MEDICARE, BC ==
[2021-09-16] MEDS ORDERED: Acetaminophen 500 MG TAB PO PRN (11:39)
[2021-09-16] MEDS ORDERED: diphenhydrAMINE 25 MG CAP PO PRN (11:40)
[2021-09-16 17:22] VITALS: BP 131/62; TEMP 98.4
== END 2021-09-16 17:22 | disposition home or self-care (01) ==
LOC: ONC/OP 10:53
PROVIDERS: ATTEND Internal Medicine Hematology & Oncology
PROC: 30233N1 Transfusion of Nonautologous Red Blood Cells into Peripheral Vein, Percutaneous Approach (ICD-10-PCS; principal; 2021-09-16)
PROC: 30233R1 Transfusion of Nonautologous Platelets into Peripheral Vein, Percutaneous Approach (ICD-10-PCS; 2021-09-16)
DX: D64.9 Anemia, unspecified (principal); D69.6 Thrombocytopenia, unspecified; Z88.5 Allergy status to narcotic agent; Z88.6 Allergy status to analgesic agent
CPT/HCPCS: 36430; 85025; 86850; 86900; 86901; P9016; P9035

== ENCOUNTER 2021-09-24 08:22 | Day surgery (SDC) | payer MEDICARE, BC ==
[2021-09-24] MEDS ORDERED: Acetaminophen 500 MG TAB ONE (09:31)
[2021-09-24] MEDS ORDERED: diphenhydrAMINE 25 MG CAP ONE ×2 (09:31→09:36)
[2021-09-24] MEDS ORDERED: Sodium Chloride 0.9% 10 ML ONE ×2 (09:32)
[2021-09-24 13:00] VITALS: TEMP 98
[2021-09-24 14:31] VITALS: BP 123/61
== END 2021-09-24 14:39 | disposition home or self-care (01) ==
LOC: ONC/OP 08:22
PROVIDERS: ATTEND Internal Medicine Hematology & Oncology
PROC: 30233N1 Transfusion of Nonautologous Red Blood Cells into Peripheral Vein, Percutaneous Approach (ICD-10-PCS; principal; 2021-09-24)
DX: D64.9 Anemia, unspecified (principal); D69.6 Thrombocytopenia, unspecified; Z88.5 Allergy status to narcotic agent; Z88.6 Allergy status to analgesic agent
CPT/HCPCS: 36430; 86850; 86900; 86901; J1642; P9016

== ENCOUNTER 2021-10-08 10:40 | Day surgery (SDC) | payer MEDICARE, BC ==
[2021-10-08] MEDS ORDERED: Acetaminophen 500 MG TAB ONE ×2 (11:43→14:01)
[2021-10-08] MEDS ORDERED: diphenhydrAMINE 25 MG CAP ONE (11:43)
[2021-10-08 12:34] VITALS: TEMP 98.2
[2021-10-08 16:40] VITALS: BP 140/63
== END 2021-10-08 16:40 | disposition home or self-care (01) ==
LOC: ONC/OP 10:40
PROVIDERS: ATTEND Internal Medicine Hematology & Oncology
PROC: 30233N1 Transfusion of Nonautologous Red Blood Cells into Peripheral Vein, Percutaneous Approach (ICD-10-PCS; principal; 2021-10-08)
DX: D64.9 Anemia, unspecified (principal); D69.6 Thrombocytopenia, unspecified; Z88.5 Allergy status to narcotic agent; Z88.6 Allergy status to analgesic agent
CPT/HCPCS: 36430; 86850; 86900; 86901; J1642; P9016

== ENCOUNTER 2021-10-22 08:26 | Day surgery (SDC) | payer MEDICARE, BC ==
[2021-10-22] MEDS ORDERED: Sodium Chloride 0.9% 10 ML ONE (08:43)
[2021-10-22] MEDS ORDERED: diphenhydrAMINE 25 MG CAP ONE (08:44)
[2021-10-22] MEDS ORDERED: Acetaminophen 500 MG TAB ONE (08:44)
[2021-10-22] MEDS ORDERED: diphenhydrAMINE 25 MG CAP PO PRN (09:10)
[2021-10-22] MEDS ORDERED: Acetaminophen 500 MG TAB PO PRN (09:10)
[2021-10-22 15:45] VITALS: BP 122/60; TEMP 98.4
== END 2021-10-22 15:46 | disposition home or self-care (01) ==
LOC: ONC/OP 08:26
PROVIDERS: ATTEND Internal Medicine Hematology & Oncology
PROC: 30233N1 Transfusion of Nonautologous Red Blood Cells into Peripheral Vein, Percutaneous Approach (ICD-10-PCS; principal; 2021-10-22)
PROC: 30233R1 Transfusion of Nonautologous Platelets into Peripheral Vein, Percutaneous Approach (ICD-10-PCS; 2021-10-22)
DX: D64.9 Anemia, unspecified (principal); D69.6 Thrombocytopenia, unspecified; Z88.5 Allergy status to narcotic agent; Z88.6 Allergy status to analgesic agent
CPT/HCPCS: 36430; 86850; 86900; 86901; J1642; P9016; P9035

== ENCOUNTER 2021-10-31 10:46 | Day surgery (SDC) | payer MEDICARE, BC ==
[2021-10-31] MEDS ORDERED: Sodium Chloride 0.9% 10 ML ONE ×2 (11:18)
[2021-10-31] MEDS ORDERED: Acetaminophen 500 MG TAB ONE (11:19)
[2021-10-31] MEDS ORDERED: diphenhydrAMINE 25 MG CAP ONE (11:19)
[2021-10-31] MEDS ORDERED: Acetaminophen 500 MG TAB PO SCH (12:00)
[2021-10-31] MEDS ORDERED: diphenhydrAMINE 25 MG CAP PO SCH (12:00)
[2021-10-31 12:56] VITALS: BP 96/54; TEMP 97.7
== END 2021-10-31 18:02 | disposition home or self-care (01) ==
LOC: ONC/OP 10:46
PROVIDERS: ATTEND Internal Medicine Hematology & Oncology
PROC: 30233N1 Transfusion of Nonautologous Red Blood Cells into Peripheral Vein, Percutaneous Approach (ICD-10-PCS; principal; 2021-10-31)
DX: D64.9 Anemia, unspecified (principal); D69.6 Thrombocytopenia, unspecified; Z88.5 Allergy status to narcotic agent; Z88.6 Allergy status to analgesic agent
CPT/HCPCS: 36430; 86850; 86900; 86901; J1642; P9016

== ENCOUNTER 2021-11-17 10:23 | Day surgery (SDC) | payer MEDICARE, BC ==
[2021-11-17] MEDS ORDERED: Sodium Chloride 0.9% 10 ML ONE (10:45)
[2021-11-17 10:55] VITALS: TEMP 97.7
[2021-11-17] MEDS ORDERED: diphenhydrAMINE 25 MG CAP ONE (11:35)
[2021-11-17] MEDS ORDERED: Acetaminophen 500 MG TAB ONE (11:35)
[2021-11-17 16:18] VITALS: BP 141/59
== END 2021-11-17 16:19 | disposition home or self-care (01) ==
LOC: ONC/OP 10:23
PROVIDERS: ATTEND Internal Medicine Hematology & Oncology
PROC: 30233N1 Transfusion of Nonautologous Red Blood Cells into Peripheral Vein, Percutaneous Approach (ICD-10-PCS; principal; 2021-11-17)
DX: D64.9 Anemia, unspecified (principal); D69.6 Thrombocytopenia, unspecified; Z88.5 Allergy status to narcotic agent; Z88.6 Allergy status to analgesic agent
CPT/HCPCS: 36430; 86850; 86900; 86901; J1642; P9016

== ENCOUNTER 2021-11-27 09:00 | Day surgery (SDC) | payer MEDICARE, BC ==
[2021-11-27] MEDS ORDERED: Sodium Chloride 0.9% 10 ML ONE (09:09)
[2021-11-27] MEDS ORDERED: diphenhydrAMINE 25 MG CAP ONE (09:17)
[2021-11-27] MEDS ORDERED: Acetaminophen 500 MG TAB ONE (09:18)
[2021-11-27 09:40] VITALS: TEMP 97.6
[2021-11-27 11:35] VITALS: BP 133/60
== END 2021-11-27 11:36 | disposition home or self-care (01) ==
LOC: ONC/OP 09:00
PROVIDERS: ATTEND Internal Medicine Hematology & Oncology
PROC: 30233N1 Transfusion of Nonautologous Red Blood Cells into Peripheral Vein, Percutaneous Approach (ICD-10-PCS; principal; 2021-11-27)
PROC: 30233R1 Transfusion of Nonautologous Platelets into Peripheral Vein, Percutaneous Approach (ICD-10-PCS; 2021-11-27)
DX: D64.9 Anemia, unspecified (principal); D69.6 Thrombocytopenia, unspecified; Z88.5 Allergy status to narcotic agent; Z88.6 Allergy status to analgesic agent
CPT/HCPCS: 36430; 86850; 86900; 86901; J1642; P9016; P9035

== ENCOUNTER 2021-12-03 10:41 | Day surgery (SDC) | payer MEDICARE, BC ==
[2021-12-03] MEDS ORDERED: Sodium Chloride 0.9% 10 ML ONE (10:59)
[2021-12-03] MEDS ORDERED: Acetaminophen 500 MG TAB ONE (11:00)
[2021-12-03] MEDS ORDERED: diphenhydrAMINE 25 MG CAP ONE (11:00)
[2021-12-03] MEDS ORDERED: Acetaminophen 500 MG TAB PO PRN (11:27)
[2021-12-03] MEDS ORDERED: diphenhydrAMINE 25 MG CAP PO PRN (11:28)
[2021-12-03 17:15] VITALS: BP 134/64; TEMP 97.8
== END 2021-12-03 17:21 | disposition home or self-care (01) ==
LOC: ONC/OP 10:41
PROVIDERS: ATTEND Internal Medicine Hematology & Oncology
PROC: 30233N1 Transfusion of Nonautologous Red Blood Cells into Peripheral Vein, Percutaneous Approach (ICD-10-PCS; principal; 2021-12-03)
DX: D64.9 Anemia, unspecified (principal); Z88.5 Allergy status to narcotic agent; Z88.6 Allergy status to analgesic agent
CPT/HCPCS: 36430; 86850; 86900; 86901; J1642; P9016

== ENCOUNTER 2021-12-17 10:59 | Day surgery (SDC) | payer MEDICARE, BC ==
[2021-12-17] MEDS ORDERED: Acetaminophen 500 MG TAB ONE (11:28)
[2021-12-17] MEDS ORDERED: diphenhydrAMINE 25 MG CAP ONE (11:28)
[2021-12-17] MEDS ORDERED: Sodium Chloride 0.9% 10 ML ONE (11:30)
[2021-12-17 15:49] VITALS: BP 120/58; TEMP 98.2
== END 2021-12-17 15:50 | disposition home or self-care (01) ==
LOC: ONC/OP 10:59
PROVIDERS: ATTEND Internal Medicine Hematology & Oncology
PROC: 30233N1 Transfusion of Nonautologous Red Blood Cells into Peripheral Vein, Percutaneous Approach (ICD-10-PCS; principal; 2021-12-17)
DX: D64.9 Anemia, unspecified (principal); D69.6 Thrombocytopenia, unspecified; Z88.5 Allergy status to narcotic agent; Z88.6 Allergy status to analgesic agent
CPT/HCPCS: 36430; 86850; 86900; 86901; J1642; P9016

== ENCOUNTER 2021-12-24 12:41 | Day surgery (SDC) | payer MEDICARE, BC ==
[2021-12-24] MEDS ORDERED: diphenhydrAMINE 25 MG CAP ONE (13:32)
[2021-12-24] MEDS ORDERED: Acetaminophen 500 MG TAB ONE (13:32)
[2021-12-24 16:22] VITALS: TEMP 97.6
[2021-12-24 16:54] VITALS: BP 110/54
== END 2021-12-24 16:55 | disposition home or self-care (01) ==
LOC: ONC/OP 12:41
PROVIDERS: ATTEND Internal Medicine Hematology & Oncology
PROC: 30233N1 Transfusion of Nonautologous Red Blood Cells into Peripheral Vein, Percutaneous Approach (ICD-10-PCS; principal; 2021-12-24)
PROC: 30233R1 Transfusion of Nonautologous Platelets into Peripheral Vein, Percutaneous Approach (ICD-10-PCS; 2021-12-24)
DX: D64.9 Anemia, unspecified (principal); D69.6 Thrombocytopenia, unspecified; Z88.5 Allergy status to narcotic agent; Z88.6 Allergy status to analgesic agent
CPT/HCPCS: 36430; 86850; 86900; 86901; J1642; P9016; P9035